=== PATIENT | female | born 1970 | race Caucasian/White ===

== ENCOUNTER 2020-09-02 13:30 | Inpatient (IN) | payer MEDICAID, SELFPAY ==
--- NOTE | ~2020-09-02 | CT_ITS ---
EXAMINATION: CT ABDOMEN AND PELVIS WITHOUT CONTRAST CLINICAL INFORMATION: Pain. COMPARISON: None. TECHNIQUE: Contiguous axial thin section helical images of the abdomen and pelvis were performed without oral or IV contrast. The data set was reformatted in the coronal and sagittal planes and reviewed on an independent workstation. DLP: 878 mGy-cm. FINDINGS: The visualized lung bases are clear. The visualized portions of the heart are unremarkable. The liver is of normal size and attenuation without focal lesions nor intrahepatic biliary ductal dilation. A normal gallbladder is identified. There is no wall thickening or discernible pericholecystic fluid. The spleen, pancreas, adrenal glands are unremarkable. Both kidneys are of normal size and attenuation without hydronephrosis or nephrolithiasis. There is no abdominal free fluid. There is neither mesenteric nor retroperitoneal lymphadenopathy. Normal unopacified loops of small and large bowel are identified. And normal appendix is identified. There is no pelvic free fluid. The urinary bladder is unremarkable. There is neither pelvic nor inguinal lymphadenopathy. Bone windows: Neither sclerotic nor lytic bone lesions are identified. CT/CT abdomen pelvis wo con IMPRESSION: No acute abdominal or pelvic inflammatory or infectious processes. Automated exposure control (Care Dose) Adjustment of the mA and/or kv according to patient size (this includes techniques or standardized protocols for targeted exams where dose is matched to indication / reason for exam; i.e. extremities or head).
--- NOTE | ~2020-09-02 | XR_ITS ---
EXAMINATION: XR CHEST CLINICAL INFORMATION: AMS. COMPARISON: None TECHNIQUE: Frontal view of the chest was obtained. FINDINGS: No significant abnormality is noted involving the heart, lungs, mediastinum, bony thorax or soft tissues. XR/XR chest 1V IMPRESSION: Unremarkable chest exam.
--- NOTE | ~2020-09-02 | CT_ITS ---
EXAMINATION: CT HEAD WITHOUT CONTRAST CLINICAL INFORMATION: Altered mental syndrome COMPARISON: None TECHNIQUE: Contiguous axial imaging was performed from the skull base to vertex without intravenous administration of contrast. This CT examination was performed using dose optimization techniques as appropriate, variously including the following: *Automated exposure control *Adjustment of mA and/or kV according to patient size (this includes techniques or standardized protocols for targeted exams where dose is matched to indication/reason for exam; i.e. extremities or head) *Use of iterative reconstruction technique DLP: 756 mGy-cm FINDINGS: There is no evidence of acute intracranial hemorrhage or territorial infarction. No abnormal mass effect or midline shift is seen. Wayne to white matter differentiation is well preserved. No extra-axial fluid collections are identified. The ventricles are normal in size. There is no abnormal attenuation within the brain parenchyma. The osseous structures and soft tissues are normal. The mastoid air cells and visualized portions of the paranasal sinuses are well aerated. CT/CT head/brain wo con IMPRESSION: No acute intracranial process seen..
--- NOTE | ~2020-09-02 | MR_ITS ---
EXAMINATION: MR BRAIN WITHOUT AND WITH CONTRAST CLINICAL INFORMATION: Encephalopathy. COMPARISON: CT scan of the head 09/02/2020. TECHNIQUE: Multiplanar MR imaging of the brain was performed without and with contrast. A total of 7.5 mL Gadavist was utilized for this examination. FINDINGS: Postcontrast images reveal no abnormal mass or enhancement within the intracranial compartment. No intracranial mass effect or midline shift. Lateral and third ventricles are proportionate to the subarachnoid spaces. No hydrocephalus. Midline structures including the cervicomedullary junction are normal. No acute bone marrow signal lesions. There is no acute territorial infarct. There is a punctate focus of susceptibility artifact within the right globus pallidus. Otherwise no pathological magnetic susceptibility artifact. Intracranial vascular flow voids are maintained. There is no mastoid middle ear effusion. No active paranasal sinus disease. MR/MR head/brain wo/w con IMPRESSION: Unremarkable brain MRI. No evidence of acute territorial infarct or hemorrhage. No abnormal intracranial mass or enhancement.
[2020-09-02 13:41] VITALS: BP 135/80; PULSE 107; O2SAT 100
[2020-09-02 13:45] VITALS: BP 118/60; PULSE 95; RESP 20; TEMP 36.9; O2SAT 98; BMI 33.3
--- NOTE | 2020-09-02 14:01 | ECG_ITS ---
Test Reason : AMS Blood Pressure : / mmHG Vent. Rate : 095 BPM Atrial Rate : 095 BPM P-R Int : 134 ms QRS Dur : 102 ms QT Int : 368 ms P-R-T Axes : 042 041 -13 degrees QTc Int : 462 ms Normal sinus rhythm Normal ECG No previous ECGs available Referred By: King Bates Electronically Signed By:URSULA DAMON
[2020-09-02 14:18] LABS: MANUAL DIFF FLAG NO
[2020-09-02 14:24] LABS: Basophils Percent Auto 0.4 % (0-2); Eosinophils Percent Auto 0.1 % (0-4); Hematocrit 36.5 % (37-47); Hemoglobin 11.8 g/dl (12.0-16.0); Imm Gran Abs Auto 0.09 X10*3/uL (0.00-0.03); Imm Gran Pct Auto 0.8 % (0.0-0.4); Lymphocytes Absolute Auto 1.8 X10*3/uL (1.2-4.9); Lymphocytes Percent Auto 15.8 % (20-40); Mean Corpuscular HGB Conc 32.3 g/dl (31.0-35.0); Mean Corpuscular Hemoglobin 25.1 pg (27.0-33.0); Mean Corpuscular Volume 77.7 fL (80-98); Monocytes Absolute Auto 0.9 X10*3/uL (0.1-1.2); Monocytes Percent Auto 7.6 % (2-11); Neutrophils Absolute Auto 8.4 X10*3/uL (2.0-8.3); Neutrophils Percent Auto 75.3 % (45-73); Platelet Count 234 X10*3/uL (160-400); Red Cell Distribution Width 15.1 % (11.0-16.0); White Blood Count 11.1 X10*3/uL (4.8-10.8)
[2020-09-02] MEDS: 0.9 % Sodium Chloride 1,000 ML 999 ML IV (14:24)
[2020-09-02 14:36] LABS: INTERNATIONAL NORM RATIO 1.3 (0.9-1.1); Prothrombin Time 15.4 SEC (10.8-13.0)
[2020-09-02 14:39] LABS: Partial Thromboplastin Time 32.8 SEC (24.1-38.0)
[2020-09-02 14:49] LABS: Alanine Aminotransferase 23 U/L (0-31); Albumin Level 4.2 g/dL (3.5-5.0); Alkaline Phosphatase 137 U/L (39-117); Anion Gap 17 (12-20); Aspartate Amino Transferase 18 U/L (5-31); Bilirubin Total 0.4 mg/dL (0.0-1.0); Blood Urea Nitrogen 14 mg/dL (9-16); Calcium 8.9 mg/dL (8.4-10.2); Carbon Dioxide 23 mmol/L (22-29); Chloride 101 mmol/L (96-108); Creatinine Clr Calc Pharmacy 122.1; Estimated Glomerular Filt Rate > 60; Glucose Random 176 mg/dL (60-115); Potassium 3.8 mmol/L (3.3-5.1); Sodium 137 mmol/L (135-145); Total Protein 8.5 g/dL (6.5-8.0)
--- NOTE | 2020-09-02 16:27 | ED.GENADULT ---
HPI - General Adult General Chief complaint: General Medical <King Bates NP - Last Filed: 09/02/20 17:44> Stated complaint: N/V/D X1WEEK <King Bates NP - Last Filed: 09/02/20 17:44> Time Seen by Provider: 09/02/20 14:00 <King Bates NP - Last Filed: 09/02/20 17:44> Source: EMS <King Bates NP - Last Filed: 09/02/20 17:44> Mode of arrival: EMS <King Bates NP - Last Filed: 09/02/20 17:44> Limitations: language barrier <King Bates NP - Last Filed: 09/02/20 17:44> History of Present Illness HPI narrative: This is a 50-year-old female who is primarily Grenadian-speaking the warehouse guard present also sister Elvia via phone [phone] she has a past medical history that is significant for diabetes, hypertension and hyperlipidemia she presents via EMS with complaint of she received her COVID vaccine (maderna) on August 27 and the day after she started having some GI symptoms of nausea and vomiting with some intermittent diarrhea and for the past couple days she has been more lethargic and feeling like she has no energy as well per sister seem more confused over past 2 or 3 days. <King Bates NP - Last Filed: 09/02/20 17:44> Onset (ago): day(s) <King Bates NP - Last Filed: 09/02/20 17:44> Severity: moderate <King Bates NP - Last Filed: 09/02/20 17:44> Quality: aching <King Bates NP - Last Filed: 09/02/20 17:44> Pain Consistency: constant <King Bates NP - Last Filed: 09/02/20 17:44> Relieving factors: none <King Bates NP - Last Filed: 09/02/20 17:44> Exacerbating factors: none <King Bates NP - Last Filed: 09/02/20 17:44> Associated symptoms: weakness <King Bates NP - Last Filed: 09/02/20 17:44> Treatments prior to arrival: none <King Bates NP - Last Filed: 09/02/20 17:44> Related Data Allergies/adverse reactions: Allergies Allergy/AdvReac Type Severity Reaction Status Date / Time ibuprofen Allergy Unknown Verified 12/02/18 00:00 <King Bates NP - Last Filed: 09/02/20 17:44> Review of Systems Review of Systems: Yes Unobtainable due to mental status <King Bates NP - Last Filed: 09/02/20 17:44> [facility] Past Medical History Medical History: Medical History HLD (hyperlipidemia) HTN (hypertension) <King Bates NP - Last Filed: 09/02/20 17:44> Social History Social History: Social History Alcohol intake: unknown Smoking Status: Unknown if ever smoked Use of substances other than those prescribed or required for medical reasons: Unknown Advance Directives: No Advance Directives Information Provided: No <King Bates NP - Last Filed: 09/02/20 17:44> Physical Exam Vital Signs: Vital Signs: Last Vital Signs Temp 98.4 F 09/02/20 13:45 Pulse 94 09/03/20 00:05 Resp 20 09/03/20 00:05 BP 135/74 09/03/20 00:05 Pulse Ox 97 09/03/20 00:05 Body Mass Index 27.3 Reviewed <King Bates NP - Last Filed: 09/02/20 17:44> Vital Signs: Last Vital Signs Temp 98.4 F 09/02/20 13:45 Pulse 94 09/03/20 00:05 Resp 20 09/03/20 00:05 BP 135/74 09/03/20 00:05 Pulse Ox 97 09/03/20 00:05 Body Mass Index 27.3 <Eloise Truong NP - Last Filed: 09/03/20 03:22> Const: Other: Somnolent [employer] patrol police lieutenant say his hospital and say her name but refusing to participate in exam <King Bates NP - Last Filed: 09/02/20 17:44> General: No acute distress or intoxicated appearing <King Bates NP - Last Filed: 09/02/20 17:44> Nutritional Appearance: average body habitus <[facility] Jana [facility] Last Filed: 09/02/20 17:44> Orientation/consciousness: oriented to person and oriented to time <[facility] Bates [facility] Last Filed: 09/02/20 17:44> HENMT: Head: Yes normal to inspection <[facility] Bates [facility] Last Filed: 09/02/20 17:44> Ears: hearing grossly normal bilaterally <[facility] Last Filed: 09/02/20 17:44> Eyes: General: appearance normal, both eyes and all related structures <[facility] Bates [facility] Last Filed: 09/02/20 17:44> Visual Garrett: normal visual garrett by confrontation <[facility] Bates [facility] Last Filed: 09/02/20 17:44> Neck: Neck: Yes normal visual inspection, No positive Brudzinski's sign, No positive Kernig's sign and No tender <[facility] Bates [facility] Last Filed: 09/02/20 17:44> Thyroid: Thyroid normal <[facility] Last Filed: 09/02/20 17:44> Chest: Chest palpation & inspection: normal inspection of the chest <[facility] Bates, [facility] Last Filed: 09/02/20 17:44> Resp: Effort & Inspection: normal respiratory effort <[facility] Bates [facility] Last Filed: 09/02/20 17:44> Auscultation: clear to auscultation bilaterally <[facility] Bates, [facility] Last Filed: 09/02/20 17:44> Cardio: Jugular venous distension: no JVD <[facility] Last Filed: 09/02/20 17:44> Rhythm: regular rhythm <[facility] Last Filed: 09/02/20 17:44> Heart sounds: S1 normal heart sound present and S2 normal heart sound present <[facility] Last Filed: 09/02/20 17:44> GI: Inspection: Yes normal to inspection <[facility] Last Filed: 09/02/20 17:44> Palpation (GI): Soft to palpation <[facility] - Last Filed: 09/02/20 17:44> Percussion: Yes normal to percussion <[facility] Jana, ACADEMIC AFFAIRS MANAGER - Last Filed: 09/02/20 17:44> Auscultation: normal bowel sounds <[facility] Jana, ACADEMIC AFFAIRS MANAGER - Last Filed: 09/02/20 17:44> : General: Yes no CVA tenderness <[facility] Jana, ACADEMIC AFFAIRS MANAGER - Last Filed: 09/02/20 17:44> Back/Spine/Pelvis: Back: no CVA tenderness <[facility] Jana, ACADEMIC AFFAIRS MANAGER - Last Filed: 09/02/20 17:44> Skin: General skin exam: no rashes or lesions noted <[facility] Jana, ACADEMIC AFFAIRS MANAGER - Last Filed: 09/02/20 17:44> Neuro: General: oriented to person and oriented to time <[facility] Jana, ACADEMIC AFFAIRS MANAGER - Last Filed: 09/02/20 17:44> Extrem: General: Yes normal to inspection <[facility] Jana, ACADEMIC AFFAIRS MANAGER - Last Filed: 09/02/20 17:44> Course Course Course Narrative: Patient straight cath for urine at this time 8:48 p.m. Urinalysis is negative for acute findings, PRO is negative. Family member present at bedside at 10:00 p.m., discussion with daughter regarding this patient's mental status, she is usually alert oriented x4, able to complete tasks on her own. Discussion with Dr. Glass, plan is to add ESR, CRP, ammonia, and plan for LP with ketamine sedation. Consent signed by daughter at 10:38 p.m. utilizing patrol police lieutenant. 12:[address] Dutton at bedside with this ACADEMIC AFFAIRS MANAGER, physical exam performed by Dr. Glass indicates abdominal pain, patient is moaning during palpation, this is a different presentation than my prior evaluation and prior [facility] ACADEMIC AFFAIRS MANAGER evaluation. Will add on CT scan of abdomen and pelvis prior to LP. 1:00 a.m. multiple attempts made for CT, plan for Ativan IV 1 mg. 1:45 a.m., 2nd dose of Ativan IV given. 2:15 a.m., multiple attempts for CT angio failed, patient is unable to stay still, unable to follow directions. Discussion with hospitalist, and she agrees with this plan. 2:[address] scan of the abdomen is negative for acute findings. Will pursue LP at this time. 3:21 a.m. multiple attempts by Dr. Glass and this ACADEMIC AFFAIRS MANAGER for LP CSF culture failed. Discussion with hospitalist, plan is to empirically treat for bacterial and viral encephalitis with acyclovir IV, doxycycline, and ceftriaxone. Lactic acid, blood cultures, and Lyme titer obtained. Sign-out to Dr. Glass, pending admission for encephalitis. <Eloise Truong ACADEMIC AFFAIRS MANAGER - Last Filed: 09/03/20 03:22> Reevaluation(s) Reevaluation #1: 1430 50-year-old female with history of hypertension/hyperlipidemia who received her COVID vaccinations 6 days ago and after receiving at she has had some myalgias and subsequently having GI symptoms of nausea vomiting and some diarrhea. She is primarily Grenadian-speaking upon arrival somnolent and not persisting exam much. Will check labs rule out electrolyte derangement and head CT rule out acute pathology though I would not suspect acute intracranial process. Will monitor closely. Spoke to sister Elvia she will come in. Her phone number is [phone]. EMS report reviewed he does state that she was alert and oriented x4, ambulatory on scene. <King Bates NP - Last Filed: 09/02/20 17:44> Reevaluation #2: Labs overall reassuring, CT of the head unremarkable. UA still pending I was able to get the patient out of bed with assistance of the business office technician and she ambulated with slow but steady gait about 15 ft and went to the bathroom to provide a UA however she voided in the toilet and missed the hat. She tells me her name but continues to not participate in exam question underlying psychiatric diagnoses.. Spoke to sister who states she is on way but does not specifically know of anything. No recent triggers aside from the COVID vaccine. UA/U tox is pending will try again in a few minutes. <King Bates NP - Last Filed: 09/02/20 17:44> Reevaluation #3: Sign-out to eloise pending re-evaluation and U tox if patient mentation improves question underlying toxic versus psych versus social stressors sisters on the way to help with history. Will need disposition. <King Bates NP - Last Filed: 09/02/20 17:44> Consultations Consultation #1: Spoke to sister Elvia several times on the phone she is on her way to the ER <King Bates NP - Last Filed: 09/02/20 17:44> Medical Decision Making Lab Data Result diagrams: : 09/02/20 14:11 09/02/20 14:11 <King Bates NP - Last Filed: 09/02/20 17:44> Labs: Lab Results 09/02/20 09/02/20 09/02/20 Range/Units 14:11 14:11 14:11 WBC 11.1 H (4.8-10.8) X10*3/uL RBC 4.70 (4.20-5.50) X10*6/uL Hgb 11.8 L (12.0-16.0) g/dl Hct 36.5 L (37-47) % MCV 77.7 L (80-98) fL MCH 25.1 L (27.0-33.0) pg MCHC 32.3 (31.0-35.0) g/dl RDW 15.1 (11.0-16.0) % Plt Count 234 (160-400) X10*3/uL MPV 11.0 (9.4-12.3) fL Immature Gran % (Auto) 0.8 H (0.0-0.4) % Neut % (Auto) 75.3 H (45-73) % Lymph % (Auto) 15.8 L (20-40) % [place] % (Auto) 7.6 (2-11) % Eos % (Auto) 0.1 (0-4) % Baso % (Auto) 0.4 (0-2) % Lymph # (Auto) 1.8 (1.2-4.9) X10*3/uL [place] # (Auto) 0.9 (0.1-1.2) X10*3/uL Eos # (Auto) 0.0 (0.0-0.4) X10*3/uL Baso # (Auto) 0.0 (0.0-0.2) X10*3/uL Abs Immat Gran (auto) 0.09 H (0.00-0.03) X10*3/uL Absolute Neuts (auto) 8.4 H (2.0-8.3) X10*3/uL Absolute Nucleated RBC 0.000 (0.0-0.012) X10*3/uL Nucleated RBC % (auto) 0.0 (0.0-0.2) /100WBC ESR (0-20) MM/HR PT 15.4 H (10.8-13.0) SEC INR 1.3 H (0.9-1.1) APTT 32.8 (24.1-38.0) SEC Sodium 137 (135-145) mmol/L Potassium 3.8 (3.3-5.1) mmol/L Chloride 101 (96-108) mmol/L Carbon Dioxide 23 (22-29) mmol/L Anion Gap 17 (12-20) BUN 14 (9-16) mg/dL Creatinine 0.62 (0.5-1.4) mg/dL Estim Creat Clear Calc 122.1 Estimated GFR > 60 Random Glucose 176 H (60-115) mg/dL Calcium 8.9 (8.4-10.2) mg/dL Total Bilirubin 0.4 (0.0-1.0) mg/dL AST 18 (5-31) U/L ALT 23 (0-31) U/L Alkaline Phosphatase 137 H (39-117) U/L Ammonia (13-55) umol/L C-Reactive Protein 0.63 H (< or = 0.50) mg/dL Total Protein 8.5 H (6.5-8.0) g/dL Albumin 4.2 (3.5-5.0) g/dL Urine Color Urine Appearance Urine pH (5.0-8.0) Ur Specific [place] (1.005-1.025) Urine Protein (NEG-TRACE) MG/DL Urine Glucose (UA) (NEG) MG/DL Urine Ketones (NEG) MG/DL Urine Blood (NEG) Urine Nitrite (NEG) Ur Leukocyte Esterase (NEG) Urine RBC (0) /HPF Urine WBC (0-4) /HPF Ur Squamous Epith Cells /LPF Urine Bacteria /LPF Urine Mucus /LPF Urine Test (NEGATIVE) Urine Opiates Screen (Not Detect) Ur Barbiturates Screen (Not Detect) Ur Phencyclidine Scrn (Not Detect) Ur Amphetamines Screen (Not Detect) U Benzodiazepines Scrn (Not Detect) Urine Cocaine Screen (Not Detect) U Marijuana (THC) Screen (Not Detect) 09/02/20 09/02/20 09/02/20 Range/Units 14:11 20:29 20:29 WBC (4.8-10.8) X10*3/uL RBC (4.20-5.50) X10*6/uL Hgb (12.0-16.0) g/dl Hct (37-47) % MCV (80-98) fL MCH (27.0-33.0) pg MCHC (31.0-35.0) g/dl RDW (11.0-16.0) % Plt Count (160-400) X10*3/uL MPV (9.4-12.3) fL Immature Gran % (Auto) (0.0-0.4) % Neut % (Auto) (45-73) % Lymph % (Auto) (20-40) % [place] % (Auto) (2-11) % Eos % (Auto) (0-4) % Baso % (Auto) (0-2) % Lymph # (Auto) (1.2-4.9) X10*3/uL [place] # (Auto) (0.1-1.2) X10*3/uL Eos # (Auto) (0.0-0.4) X10*3/uL Baso # (Auto) (0.0-0.2) X10*3/uL Abs Immat Gran (auto) (0.00-0.03) X10*3/uL Absolute Neuts (auto) (2.0-8.3) X10*3/uL Absolute Nucleated RBC (0.0-0.012) X10*3/uL Nucleated RBC % (auto) (0.0-0.2) /100WBC ESR 54 H (0-20) MM/HR PT (10.8-13.0) SEC INR (0.9-1.1) APTT (24.1-38.0) SEC Sodium (135-145) mmol/L Potassium (3.3-5.1) mmol/L Chloride (96-108) mmol/L Carbon Dioxide (22-29) mmol/L Anion Gap (12-20) BUN (9-16) mg/dL Creatinine (0.5-1.4) mg/dL Estim Creat Clear Calc Estimated GFR Random Glucose (60-115) mg/dL Calcium (8.4-10.2) mg/dL Total Bilirubin (0.0-1.0) mg/dL AST (5-31) U/L ALT (0-31) U/L Alkaline Phosphatase (39-117) U/L Ammonia (13-55) umol/L C-Reactive Protein (< or = 0.50) mg/dL Total Protein (6.5-8.0) g/dL Albumin (3.5-5.0) g/dL Urine Color YELLOW Urine Appearance CLEAR Urine pH 6.0 (5.0-8.0) Ur Specific [place] >= 1.030 H (1.005-1.025) Urine Protein NEG (NEG-TRACE) MG/DL Urine Glucose (UA) NEG (NEG) MG/DL Urine Ketones >=80 (NEG) MG/DL Urine Blood NEG (NEG) Urine Nitrite NEG (NEG) Ur Leukocyte Esterase NEG (NEG) Urine RBC 0-2 (0) /HPF Urine WBC 0-2 (0-4) /HPF Ur Squamous Epith Cells TRACE /LPF Urine Bacteria NONE /LPF Urine Mucus 2+ /LPF Urine Test NEGATIVE (NEGATIVE) Urine Opiates Screen (Not Detect) Ur Barbiturates Screen (Not Detect) Ur Phencyclidine Scrn (Not Detect) Ur Amphetamines Screen (Not Detect) U Benzodiazepines Scrn (Not Detect) Urine Cocaine Screen (Not Detect) U Marijuana (THC) Screen (Not Detect) 09/02/20 09/03/20 Range/Units 20:29 00:04 WBC (4.8-10.8) X10*3/uL RBC (4.20-5.50) X10*6/uL Hgb (12.0-16.0) g/dl Hct (37-47) % MCV (80-98) fL MCH (27.0-33.0) pg MCHC (31.0-35.0) g/dl RDW (11.0-16.0) % Plt Count (160-400) X10*3/uL MPV (9.4-12.3) fL Immature Gran % (Auto) (0.0-0.4) % Neut % (Auto) (45-73) % Lymph % (Auto) (20-40) % [place] % (Auto) (2-11) % Eos % (Auto) (0-4) % Baso % (Auto) (0-2) % Lymph # (Auto) (1.2-4.9) X10*3/uL [place] # (Auto) (0.1-1.2) X10*3/uL Eos # (Auto) (0.0-0.4) X10*3/uL Baso # (Auto) (0.0-0.2) X10*3/uL Abs Immat Gran (auto) (0.00-0.03) X10*3/uL Absolute Neuts (auto) (2.0-8.3) X10*3/uL Absolute Nucleated RBC (0.0-0.012) X10*3/uL Nucleated RBC % (auto) (0.0-0.2) /100WBC ESR (0-20) MM/HR PT (10.8-13.0) SEC INR (0.9-1.1) APTT (24.1-38.0) SEC Sodium (135-145) mmol/L Potassium (3.3-5.1) mmol/L Chloride (96-108) mmol/L Carbon Dioxide (22-29) mmol/L Anion Gap (12-20) BUN (9-16) mg/dL Creatinine (0.5-1.4) mg/dL Estim Creat Clear Calc Estimated GFR Random Glucose (60-115) mg/dL Calcium (8.4-10.2) mg/dL Total Bilirubin (0.0-1.0) mg/dL AST (5-31) U/L ALT (0-31) U/L Alkaline Phosphatase (39-117) U/L Ammonia 50 (13-55) umol/L C-Reactive Protein (< or = 0.50) mg/dL Total Protein (6.5-8.0) g/dL Albumin (3.5-5.0) g/dL Urine Color Urine Appearance Urine pH (5.0-8.0) Ur Specific [place] (1.005-1.025) Urine Protein (NEG-TRACE) MG/DL Urine Glucose (UA) (NEG) MG/DL Urine Ketones (NEG) MG/DL Urine Blood (NEG) Urine Nitrite (NEG) Ur Leukocyte Esterase (NEG) Urine RBC (0) /HPF Urine WBC (0-4) /HPF Ur Squamous Epith Cells /LPF Urine Bacteria /LPF Urine Mucus /LPF Urine Test (NEGATIVE) Urine Opiates Screen Not Detected (Not Detect) Ur Barbiturates Screen Not Detected (Not Detect) Ur Phencyclidine Scrn Not Detected (Not Detect) Ur Amphetamines Screen Not Detected (Not Detect) U Benzodiazepines Scrn Not Detected (Not Detect) Urine Cocaine Screen Not Detected (Not Detect) U Marijuana (THC) Screen Not Detected (Not Detect) <King Bates NP - Last Filed: 09/02/20 17:44> Lab Results 09/02/20 09/02/20 09/02/20 Range/Units 14:11 14:11 14:11 WBC 11.1 H (4.8-10.8) X10*3/uL RBC 4.70 (4.20-5.50) X10*6/uL Hgb 11.8 L (12.0-16.0) g/dl Hct 36.5 L (37-47) % MCV 77.7 L (80-98) fL MCH 25.1 L (27.0-33.0) pg MCHC 32.3 (31.0-35.0) g/dl RDW 15.1 (11.0-16.0) % Plt Count 234 (160-400) X10*3/uL MPV 11.0 (9.4-12.3) fL Immature Gran % (Auto) 0.8 H (0.0-0.4) % Neut % (Auto) 75.3 H (45-73) % Lymph % (Auto) 15.8 L (20-40) % [place] % (Auto) 7.6 (2-11) % Eos % (Auto) 0.1 (0-4) % Baso % (Auto) 0.4 (0-2) % Lymph # (Auto) 1.8 (1.2-4.9) X10*3/uL [place] # (Auto) 0.9 (0.1-1.2) X10*3/uL Eos # (Auto) 0.0 (0.0-0.4) X10*3/uL Baso # (Auto) 0.0 (0.0-0.2) X10*3/uL Abs Immat Gran (auto) 0.09 H (0.00-0.03) X10*3/uL Absolute Neuts (auto) 8.4 H (2.0-8.3) X10*3/uL Absolute Nucleated RBC 0.000 (0.0-0.012) X10*3/uL Nucleated RBC % (auto) 0.0 (0.0-0.2) /100WBC ESR (0-20) MM/HR PT 15.4 H (10.8-13.0) SEC INR 1.3 H (0.9-1.1) APTT 32.8 (24.1-38.0) SEC Sodium 137 (135-145) mmol/L Potassium 3.8 (3.3-5.1) mmol/L Chloride 101 (96-108) mmol/L Carbon Dioxide 23 (22-29) mmol/L Anion Gap 17 (12-20) BUN 14 (9-16) mg/dL Creatinine 0.62 (0.5-1.4) mg/dL Estim Creat Clear Calc 122.1 Estimated GFR > 60 Random Glucose 176 H (60-115) mg/dL Calcium 8.9 (8.4-10.2) mg/dL Total Bilirubin 0.4 (0.0-1.0) mg/dL AST 18 (5-31) U/L ALT 23 (0-31) U/L Alkaline Phosphatase 137 H (39-117) U/L Ammonia (13-55) umol/L C-Reactive Protein 0.63 H (< or = 0.50) mg/dL Total Protein 8.5 H (6.5-8.0) g/dL Albumin 4.2 (3.5-5.0) g/dL Urine Color Urine Appearance Urine pH (5.0-8.0) Ur Specific [place] (1.005-1.025) Urine Protein (NEG-TRACE) MG/DL Urine Glucose (UA) (NEG) MG/DL Urine Ketones (NEG) MG/DL Urine Blood (NEG) Urine Nitrite (NEG) Ur Leukocyte Esterase (NEG) Urine RBC (0) /HPF Urine WBC (0-4) /HPF Ur Squamous Epith Cells /LPF Urine Bacteria /LPF Urine Mucus /LPF Urine Test (NEGATIVE) Urine Opiates Screen (Not Detect) Ur Barbiturates Screen (Not Detect) Ur Phencyclidine Scrn (Not Detect) Ur Amphetamines Screen (Not Detect) U Benzodiazepines Scrn (Not Detect) Urine Cocaine Screen (Not Detect) U Marijuana (THC) Screen (Not Detect) 09/02/20 09/02/20 09/02/20 Range/Units 14:11 20:29 20:29 WBC (4.8-10.8) X10*3/uL RBC (4.20-5.50) X10*6/uL Hgb (12.0-16.0) g/dl Hct (37-47) % MCV (80-98) fL MCH (27.0-33.0) pg MCHC (31.0-35.0) g/dl RDW (11.0-16.0) % Plt Count (160-400) X10*3/uL MPV (9.4-12.3) fL Immature Gran % (Auto) (0.0-0.4) % Neut % (Auto) (45-73) % Lymph % (Auto) (20-40) % [place] % (Auto) (2-11) % Eos % (Auto) (0-4) % Baso % (Auto) (0-2) % Lymph # (Auto) (1.2-4.9) X10*3/uL [place] # (Auto) (0.1-1.2) X10*3/uL Eos # (Auto) (0.0-0.4) X10*3/uL Baso # (Auto) (0.0-0.2) X10*3/uL Abs Immat Gran (auto) (0.00-0.03) X10*3/uL Absolute Neuts (auto) (2.0-8.3) X10*3/uL Absolute Nucleated RBC (0.0-0.012) X10*3/uL Nucleated RBC % (auto) (0.0-0.2) /100WBC ESR 54 H (0-20) MM/HR PT (10.8-13.0) SEC INR (0.9-1.1) APTT (24.1-38.0) SEC Sodium (135-145) mmol/L Potassium (3.3-5.1) mmol/L Chloride (96-108) mmol/L Carbon Dioxide (22-29) mmol/L Anion Gap (12-20) BUN (9-16) mg/dL Creatinine (0.5-1.4) mg/dL Estim Creat Clear Calc Estimated GFR Random Glucose (60-115) mg/dL Calcium (8.4-10.2) mg/dL Total Bilirubin (0.0-1.0) mg/dL AST (5-31) U/L ALT (0-31) U/L Alkaline Phosphatase (39-117) U/L Ammonia (13-55) umol/L C-Reactive Protein (< or = 0.50) mg/dL Total Protein (6.5-8.0) g/dL Albumin (3.5-5.0) g/dL Urine Color YELLOW Urine Appearance CLEAR Urine pH 6.0 (5.0-8.0) Ur Specific [place] >= 1.030 H (1.005-1.025) Urine Protein NEG (NEG-TRACE) MG/DL Urine Glucose (UA) NEG (NEG) MG/DL Urine Ketones >=80 (NEG) MG/DL Urine Blood NEG (NEG) Urine Nitrite NEG (NEG) Ur Leukocyte Esterase NEG (NEG) Urine RBC 0-2 (0) /HPF Urine WBC 0-2 (0-4) /HPF Ur Squamous Epith Cells TRACE /LPF Urine Bacteria NONE /LPF Urine Mucus 2+ /LPF Urine Test NEGATIVE (NEGATIVE) Urine Opiates Screen (Not Detect) Ur Barbiturates Screen (Not Detect) Ur Phencyclidine Scrn (Not Detect) Ur Amphetamines Screen (Not Detect) U Benzodiazepines Scrn (Not Detect) Urine Cocaine Screen (Not Detect) U Marijuana (THC) Screen (Not Detect) 09/02/20 09/03/20 Range/Units 20:29 00:04 WBC (4.8-10.8) X10*3/uL RBC (4.20-5.50) X10*6/uL Hgb (12.0-16.0) g/dl Hct (37-47) % MCV (80-98) fL MCH (27.0-33.0) pg MCHC (31.0-35.0) g/dl RDW (11.0-16.0) % Plt Count (160-400) X10*3/uL MPV (9.4-12.3) fL Immature Gran % (Auto) (0.0-0.4) % Neut % (Auto) (45-73) % Lymph % (Auto) (20-40) % [place] % (Auto) (2-11) % Eos % (Auto) (0-4) % Baso % (Auto) (0-2) % Lymph # (Auto) (1.2-4.9) X10*3/uL [place] # (Auto) (0.1-1.2) X10*3/uL Eos # (Auto) (0.0-0.4) X10*3/uL Baso # (Auto) (0.0-0.2) X10*3/uL Abs Immat Gran (auto) (0.00-0.03) X10*3/uL Absolute Neuts (auto) (2.0-8.3) X10*3/uL Absolute Nucleated RBC (0.0-0.012) X10*3/uL Nucleated RBC % (auto) (0.0-0.2) /100WBC ESR (0-20) MM/HR PT (10.8-13.0) SEC INR (0.9-1.1) APTT (24.1-38.0) SEC Sodium (135-145) mmol/L Potassium (3.3-5.1) mmol/L Chloride (96-108) mmol/L Carbon Dioxide (22-29) mmol/L Anion Gap (12-20) BUN (9-16) mg/dL Creatinine (0.5-1.4) mg/dL Estim Creat Clear Calc Estimated GFR Random Glucose (60-115) mg/dL Calcium (8.4-10.2) mg/dL Total Bilirubin (0.0-1.0) mg/dL AST (5-31) U/L ALT (0-31) U/L Alkaline Phosphatase (39-117) U/L Ammonia 50 (13-55) umol/L C-Reactive Protein (< or = 0.50) mg/dL Total Protein (6.5-8.0) g/dL Albumin (3.5-5.0) g/dL Urine Color Urine Appearance Urine pH (5.0-8.0) Ur Specific [place] (1.005-1.025) Urine Protein (NEG-TRACE) MG/DL Urine Glucose (UA) (NEG) MG/DL Urine Ketones (NEG) MG/DL Urine Blood (NEG) Urine Nitrite (NEG) Ur Leukocyte Esterase (NEG) Urine RBC (0) /HPF Urine WBC (0-4) /HPF Ur Squamous Epith Cells /LPF Urine Bacteria /LPF Urine Mucus /LPF Urine Test (NEGATIVE) Urine Opiates Screen Not Detected (Not Detect) Ur Barbiturates Screen Not Detected (Not Detect) Ur Phencyclidine Scrn Not Detected (Not Detect) Ur Amphetamines Screen Not Detected (Not Detect) U Benzodiazepines Scrn Not Detected (Not Detect) Urine Cocaine Screen Not Detected (Not Detect) U Marijuana (THC) Screen Not Detected (Not Detect) <Eloise Truong NP - Last Filed: 09/03/20 03:22> Imaging Data CT scan - abdomen: Attestation: I personally reviewed and interpreted this imaging study as follows: <Eloise Truong NP - Last Filed: 09/03/20 03:22> Radiologist's impression: EXAMINATION: CT ABDOMEN AND PELVIS WITHOUT CONTRAST CLINICAL INFORMATION: Pain. COMPARISON: None. TECHNIQUE: Contiguous axial thin section helical images of the abdomen and pelvis were performed without oral or IV contrast. The data set was reformatted in the coronal and sagittal planes and reviewed on an independent workstation. DLP: 878 mGy-cm. FINDINGS: The visualized lung bases are clear. The visualized portions of the heart are unremarkable. The liver is of normal size and attenuation without focal lesions nor intrahepatic biliary ductal dilation. A normal gallbladder is identified. There is no wall thickening or discernible pericholecystic fluid. The spleen, pancreas, adrenal glands are unremarkable. Both kidneys are of normal size and attenuation without hydronephrosis or nephrolithiasis. There is no abdominal free fluid. There is neither mesenteric nor retroperitoneal lymphadenopathy. Normal unopacified loops of small and large bowel are identified. And normal appendix is identified. There is no pelvic free fluid. The urinary bladder is unremarkable. There is neither pelvic nor inguinal lymphadenopathy. Bone windows: Neither sclerotic nor lytic bone lesions are identified. CT/CT abdomen pelvis wo con IMPRESSION: No acute abdominal or pelvic inflammatory or infectious processes. Automated exposure control (Care Dose) Adjustment of the mA and/or kv according to patient size (this includes techniques or standardized protocols for targeted exams where dose is matched to indication / reason for exam; i.e. extremities or head). <Eloise Truong NP - Last Filed: 09/03/20 03:22> Critical Care Time Critical Care Time Critical Care Time: Yes <Eloise Truong NP - Last Filed: 09/03/20 03:22> Total Critical Care Time: 120 <Eloise Truong NP - Last Filed: 09/03/20 03:22> Attestation: I have personally provided critical care time exclusive of time spent on separately billable procedures. Time includes review of laboratory data, radiology results, discussion with consultants, and monitoring for potential decompensation. Interventions were performed as documented. <Eloise Truong NP - Last Filed: 09/03/20 03:22> Discharge Plan Discharge Clinical Impression: Encephalitis <King Bates NP - Last Filed: 09/02/20 17:44> Patient Disposition: Admitted As Inpatient <King Bates NP - Last Filed: 09/02/20 17:44>
[2020-09-02 17:48] VITALS: BP 140/77; PULSE 104; RESP 16; O2SAT 100
--- NOTE | 2020-09-02 19:44 | PC.NURSE ---
WALKED INTO ROOM TO REMIND PATIENT THAT WE NEED A URINE SAMPLE. PT WOULD NOT VERBALLY AKNOWLEDGE ME, DID OPEN HER EYES. PT ROLLED OVER TO OTHER SIDE. IV FLUIDS NOT RUNNING, IV IN RIGHT AC. PT INSTRUCTED TO TRY AND KEEP RIGHT ARM STRAIGHT, PT WOULD NOT COMPLY. YIFAN SWAN RN.
--- NOTE | 2020-09-02 20:19 | PC.NURSE ---
AIRCRAFT INSPECTOR at bedside with ultrasonic tester discussing CC and current plan of care with pt. Pt refusing to speak to RN/AIRCRAFT INSPECTOR. emissions testing technician at bedside for straight cath.
[2020-09-02 20:40] LABS: Glucose Urine UA NEG (NEG); Leukocyte Esterase Urine NEG (NEG); Nitrite Urine NEG (NEG); Specific Gravity - Urine >= 1.030 (1.005-1.025); Urine Blood NEG (NEG); Urine Ketones >=80 MG/DL (NEG); Urine Protein NEG (NEG-TRACE)
[2020-09-02 20:48] LABS: Appearance Urine CLEAR; Color Urine YELLOW
[2020-09-02 20:51] LABS: Mucus Urine 2+ /LPF; RBC Urine 0-2 /HPF (0); Squamous Epithelial Cell Urine TRACE /LPF; WBC Urine 0-2 /HPF (0-4)
[2020-09-02 20:53] VITALS: BP 128/79; PULSE 89; RESP 16; O2SAT 100
[2020-09-02 21:03] LABS: Urine Pregnancy NEGATIVE (NEGATIVE)
[2020-09-02 21:04] LABS: UPreg QC Valid YES
[2020-09-02 21:14] LABS: Amphetamine Screen Urine Not Detected (Not Detect); Barbiturates, Urine Not Detected (Not Detect); Benzodiazepines Screen Urine Not Detected (Not Detect); Cannabinoid Screen Urine Not Detected (Not Detect); Cocaine Screen Urine Not Detected (Not Detect); Opiate Screen Urine Not Detected (Not Detect); Phencyclidine Screen Urine Not Detected (Not Detect)
--- NOTE | 2020-09-02 21:27 | PC.NURSE ---
Report given to Saray. Pt being prepared for transport to ICU.
--- NOTE | 2020-09-02 23:10 | PC.NURSE ---
Per ENVIRONMENTAL EMERGENCIES ASSISTANT, plan for IM Ketamine and an LP.
[2020-09-02 23:15] VITALS: BMI 27.3
[2020-09-02 23:15] LABS: C Reactive Protein 0.63 mg/dL (< or = 0.50)
--- NOTE | 2020-09-02 23:16 | PC.NURSE ---
Pt transferred into a weighted bed to obtain and accurate weight for sedation. Weight 74.6 kg. Weight updated in chart.
[2020-09-03] VITALS (17 sets, daily range): BP systolic 115–149; BP diastolic 60–90; PULSE 86–118; RESP 16–24; TEMP 36.1–37.4; O2SAT 93–100
--- NOTE | 2020-09-03 00:08 | PC.NURSE ---
Labs obtained and sent. VSS at this time. Awaiting MD and RT for LP.
[2020-09-03 00:26] LABS: Erythrocyte Sedimentation Rate 54 MM/HR (0-20)
[2020-09-03 00:44] LABS: Ammonia 50 umol/L (13-55)
--- NOTE | 2020-09-03 01:04 | PC.NURSE ---
MD and INSURANCE SALES SPECIALIST at bedside for LP. Per MD, plan to CT abdomen prior to LP.
[2020-09-03] MEDS: LORazepam 2 MG/ML VIAL 1 MG IVPUSH ×2 (01:29→02:07)
--- NOTE | 2020-09-03 01:32 | PC.NURSE ---
Pt medicated with Ativan prior to CT as pt remains altered, unable to sit still or follow commands. VSS at this time. Pt aware of plan for CT.
--- NOTE | 2020-09-03 01:49 | PC.NURSE ---
Pt off to CT on hospital bed.
--- NOTE | 2020-09-03 02:10 | PC.NURSE ---
Pt medicated again with 1 mg of Ativan IVP while in CT per DRAFTING SUPERVISOR request. Pt unable to follow commands while in CT.
[2020-09-03] MEDS: ondansetron HCL 4 MG/2 ML VIAL IVPUSH (02:48)
[2020-09-03] MEDS: Ketamine HCl 500 MG/5 ML VIAL 150 MG IM (02:48)
--- NOTE | 2020-09-03 02:55 | PC.NURSE ---
MD and MACHINE PLASTER MIXER at bedside for LP. Pt medicated per MAR for LP. RT at bedside. VSS at this time.
--- NOTE | 2020-09-03 03:24 | PC.NURSE ---
MD and CUSTOMER ORDER CLERK UTO CSF. Plan for BCX, lactic and ABX. VSS at this time however pt remains drowsy after Ativan and Ketamine.
--- NOTE | 2020-09-03 03:35 | PC.NURSE ---
Plan to initially medicate with 362.872 mg of Ketamine. This RN removed one vial from the pyxis having wasted the 137.128 mg with Savage Robin RN. Since pt received [address] mg of Ativan during CT, decreased dose of Ketamine to 150 mg. This RN and Savage Robin RN wasting the remainder of Ketamine (212.872 mg) totalling a waste of 350 mg of Ketamine.
[2020-09-03] MEDS: cefTRIAXone sodium 2 GM in 0.9 % Sodium Chloride 50 ML IV (03:45)
--- NOTE | 2020-09-03 03:50 | PC.NURSE ---
Ceftriaxone infusing per MAR. This RN contacting Seda, Government Relations Analyst regarding Acyclovir infusion as it is not stocked in the [facility].
[2020-09-03 03:56] LABS: Lactic Acid 0.8 mmol/L (0.5-2.0)
--- NOTE | 2020-09-03 04:13 | PC.NURSE ---
Doxy infusing per MAR. VSS.
[2020-09-03 04:43] LABS: COVID-19 Test Negative (Negative)
--- NOTE | 2020-09-03 04:48 | PC.NURSE ---
This RN contacting nursing prepress supervisor and night pharmacy regarding Acyclovir order. Per nursing prepress supervisor and night pharmacy, Acyclovir not available at this time.
--- NOTE | 2020-09-03 05:21 | P.HPHOSP_ITS ---
History of Present Illness Date of Service: 09/03/20 Chief Complaint: altered mentation This is a 50-year-old female with history of hypertension, HLD who presents to the hospital brought in by family due to nausea, vomiting, diarrhea, has 2nd COVID vaccine 1 week ago, during triage apparently patient did not know where she was or what day was, she did respond to her name. I am unable to get any history from the patient as she somnolent after receiving sedatives in the ED to obtain imaging as well as LP. Patient at baseline is AO x4 according to her daughter. Patient had a heart rate of 104, temp of 98.4?, respiratory rate of 16, blood pressure 140/77, satting 100% on room air Labs are significant for WBC count of 11.1, hemoglobin of 11.8, PT of 15.4, INR of 1.3, alk-phos of 137, CRP of 0.63, ESR 54, UA negative, UDS negative, head CT showed no intracranial pathology, Abdominal CT showed no acute abdominal or pelvic inflammatory infectious process. Chest x-ray unremarkable LP was attempted multiple times in the ED but patient was not cooperating and was unsuccessful Unable to obtain review of system or Past Medical history from patient as she is somnolent Review of Systems Review of Systems: Yes Unobtainable due to mental condition and Unobtainable due to mental status PMFSH Medical History HLD (hyperlipidemia) HTN (hypertension) Social History Alcohol intake: unknown Smoking Status: Unknown if ever smoked Use of substances other than those prescribed or required for medical reasons: Unknown Advance Directives: No Advance Directives Information Provided: No Meds Allergies Allergy/AdvReac Type Severity Reaction Status Date / Time ibuprofen Allergy Unknown Verified 12/02/18 00:00 Active Medications: Current Medications Generic Name Dose Route Start Last Admin Trade Name Freq PRN Reason Stop Dose Admin Pharmacy Consult 1 each 09/03/20 05:13 Consult Rx Perform Med Rec MISCELLANE ONCE PRN Consult order Physical Exam Vital Signs and Narrative: Vital Signs: Last Vital Signs Temp 99.3 F 09/03/20 02:51 Pulse 91 09/03/20 04:14 Resp 16 09/03/20 04:14 BP 121/71 09/03/20 04:14 Pulse Ox 100 09/03/20 04:14 Body Mass Index 27.3 Const: Other: Somnolent, arousable only to painful stimuli General: no acute distress Eyes: General: appearance normal, both eyes and all related structures Resp: Effort & Inspection: normal respiratory effort Cardio: Rate: regular rate Rhythm: regular rhythm GI: Palpation (GI): Soft to palpation Auscultation: normal bowel sounds Skin: General skin exam: no rashes or lesions noted Extrem: General: Yes normal to inspection and Yes no pedal edema Results Labs CBC and Chem 7: 09/02/20 14:11 09/02/20 14:11 Labs: Laboratory Results - last 24 hr 09/02/20 09/02/20 09/02/20 14:11 14:11 14:11 MCV 77.7 L MCH 25.1 L MCHC 32.3 RDW 15.1 Plt Count 234 MPV 11.0 Immature Gran % (Auto) 0.8 H Neut % (Auto) 75.3 H Lymph % (Auto) 15.8 L Sampson % (Auto) 7.6 Eos % (Auto) 0.1 Baso % (Auto) 0.4 Lymph # (Auto) 1.8 Sampson # (Auto) 0.9 Eos # (Auto) 0.0 Baso # (Auto) 0.0 Abs Immat Gran (auto) 0.09 H Absolute Neuts (auto) 8.4 H Absolute Nucleated RBC 0.000 Nucleated RBC % (auto) 0.0 ESR PT 15.4 H INR 1.3 H APTT 32.8 Anion Gap 17 Estim Creat Clear Calc 122.1 Estimated GFR > 60 Random Glucose 176 H Lactic Acid Calcium 8.9 Total Bilirubin 0.4 AST 18 ALT 23 Alkaline Phosphatase 137 H Ammonia C-Reactive Protein 0.63 H Total Protein 8.5 H Albumin 4.2 Urine Color Urine Appearance Urine pH Ur Specific [place] Urine Protein Urine Glucose (UA) Urine Ketones Urine Blood Urine Nitrite Ur Leukocyte Esterase Urine RBC Urine WBC Ur Squamous Epith Cells Urine Bacteria Urine Mucus Urine Test Urine Opiates Screen Ur Barbiturates Screen Ur Phencyclidine Scrn Ur Amphetamines Screen U Benzodiazepines Scrn Urine Cocaine Screen U Marijuana (THC) Screen COVID-19 (CHERYLE) COVID-19 Clin Com 09/02/20 09/02/20 09/02/20 14:11 20:29 20:29 MCV MCH MCHC RDW Plt Count MPV Immature Gran % (Auto) Neut % (Auto) Lymph % (Auto) Sampson % (Auto) Eos % (Auto) Baso % (Auto) Lymph # (Auto) Sampson # (Auto) Eos # (Auto) Baso # (Auto) Abs Immat Gran (auto) Absolute Neuts (auto) Absolute Nucleated RBC Nucleated RBC % (auto) ESR 54 H PT INR APTT Anion Gap Estim Creat Clear Calc Estimated GFR Random Glucose Lactic Acid Calcium Total Bilirubin AST ALT Alkaline Phosphatase Ammonia C-Reactive Protein Total Protein Albumin Urine Color YELLOW Urine Appearance CLEAR Urine pH 6.0 Ur Specific [place] >= 1.030 H Urine Protein NEG Urine Glucose (UA) NEG Urine Ketones >=80 Urine Blood NEG Urine Nitrite NEG Ur Leukocyte Esterase NEG Urine RBC 0-2 Urine WBC 0-2 Ur Squamous Epith Cells TRACE Urine Bacteria NONE Urine Mucus 2+ Urine Test NEGATIVE Urine Opiates Screen Ur Barbiturates Screen Ur Phencyclidine Scrn Ur Amphetamines Screen U Benzodiazepines Scrn Urine Cocaine Screen U Marijuana (THC) Screen COVID-19 (CHERYLE) COVID-[employer] 09/02/20 09/03/20 09/03/20 20:29 00:04 03:22 MCV MCH MCHC RDW Plt Count MPV Immature Gran % (Auto) Neut % (Auto) Lymph % (Auto) Sampson % (Auto) Eos % (Auto) Baso % (Auto) Lymph # (Auto) Sampson # (Auto) Eos # (Auto) Baso # (Auto) Abs Immat Gran (auto) Absolute Neuts (auto) Absolute Nucleated RBC Nucleated RBC % (auto) ESR PT INR APTT Anion Gap Estim Creat Clear Calc Estimated GFR Random Glucose Lactic Acid 0.8 Calcium Total Bilirubin AST ALT Alkaline Phosphatase Ammonia 50 C-Reactive Protein Total Protein Albumin Urine Color Urine Appearance Urine pH Ur Specific [place] Urine Protein Urine Glucose (UA) Urine Ketones Urine Blood Urine Nitrite Ur Leukocyte Esterase Urine RBC Urine WBC Ur Squamous Epith Cells Urine Bacteria Urine Mucus Urine Test Urine Opiates Screen Not Detected Ur Barbiturates Screen Not Detected Ur Phencyclidine Scrn Not Detected Ur Amphetamines Screen Not Detected U Benzodiazepines Scrn Not Detected Urine Cocaine Screen Not Detected U Marijuana (THC) Screen Not Detected COVID-19 (CHERYLE) COVID-19 [employer] 09/03/20 04:15 MCV MCH MCHC RDW Plt Count MPV Immature Gran % (Auto) Neut % (Auto) Lymph % (Auto) Sampson % (Auto) Eos % (Auto) Baso % (Auto) Lymph # (Auto) Sampson # (Auto) Eos # (Auto) Baso # (Auto) Abs Immat Gran (auto) Absolute Neuts (auto) Absolute Nucleated RBC Nucleated RBC % (auto) ESR PT INR APTT Anion Gap Estim Creat Clear Calc Estimated GFR Random Glucose Lactic Acid Calcium Total Bilirubin AST ALT Alkaline Phosphatase Ammonia C-Reactive Protein Total Protein Albumin Urine Color Urine Appearance Urine pH Ur Specific [place] Urine Protein Urine Glucose (UA) Urine Ketones Urine Blood Urine Nitrite Ur Leukocyte Esterase Urine RBC Urine WBC Ur Squamous Epith Cells Urine Bacteria Urine Mucus Urine Test Urine Opiates Screen Ur Barbiturates Screen Ur Phencyclidine Scrn Ur Amphetamines Screen U Benzodiazepines Scrn Urine Cocaine Screen U Marijuana (THC) Screen COVID-19 (CHERYLE) Negative COVID-19 Clin Com See Note Imaging Radiologist's Impressions: Impressions Chest X-Ray 09/02/20 14:01 IMPRESSION: Unremarkable chest exam. Head CT 09/02/20 14:02 IMPRESSION: No acute intracranial process seen.. Abdomen/Pelvis CT 09/03/20 01:04 IMPRESSION: No acute abdominal or pelvic inflammatory or infectious processes. Automated exposure control (Care Dose) Adjustment of the mA and/or kv according to patient size (this includes techniques or standardized protocols for targeted exams where dose is matched to indication / reason for exam; i.e. extremities or head). Assessment and Plan (1) Encephalopathy: Status: Acute (2) Sepsis: Status: Acute This is a 50-year-old female with past medical history of hypertension and hyperlipidemia presents to the hospital altered. # encephalopathy - unclear etiology, possibly secondary to meningitis versus encephalitis - LP was attempted but unsuccessful - patient afebrile but has tachycardia, as well as leukocytosis - usually A&O x4 at baseline but currently only oriented to self, very abnormal for her according to daughter - had complained of nausea vomiting with diarrhea for 1 week to her family who brought into the hospital - abdominal CT negative, CT negative, chest x-ray negative, UA negative - negative UDS Plan: - will start on broad-spectrum antibiotic including HSV coverage - MRI in morning # sepsis - unclear etiology at this time - was started on vanc, ceftriaxone, and acyclovir - cultures pending - will obtain Lyme and CMV - will obtain MRI in a.m. - consult infectious disease # hypertension - stable - unclear what medication she takes at home DVT prophylaxis: Heparin subQ
--- NOTE | 2020-09-03 07:34 | PC.NURSE ---
Pt resting on stretcher, opens eyes to verbal stimuli. Able to recite name but answers no other orientation questions. Mouth dry. Able to move all extremities on command but generally weak. NSR on tele. Resp rate normal, no diff breathing noted. Will inquire about Acyclovir from pharmacy
--- NOTE | 2020-09-03 08:24 | PC.NURSE ---
Spoke with daughter Tree and updated on plan at this time. Also obtained med list. Daughter states pt no longer taking Metformin (DM controlled), other meds reconcilled. Awaiting Acylcovir dose from pharmacy
[2020-09-03] MEDS: 0.9 % Sodium Chloride Flush 3 ML SYRINGE IVFLUSH ×2 (09:00→17:00)
[2020-09-03] MEDS: Heparin Sodium,Porcine 5,000 UNIT/ML VIAL 5000 UNIT SUBCUT ×2 (09:00→20:19)
[2020-09-03] MEDS: vancomycin HCL 1,000 MG in 0.9 % Sodium Chloride 250 ML 270 MG IV ×2 (09:01→20:18)
--- NOTE | 2020-09-03 09:25 | PC.NURSE ---
Bladder scanned for 624, will contact hospitalist
--- NOTE | 2020-09-03 10:21 | PC.NURSE ---
MRI screening form completed with daughter Ifeanyi
--- NOTE | 2020-09-03 10:39 | PC.NURSE ---
Dr Garcia aware of bladder scan, new order for chauhan. Chauhan placed. Vanco and Acyclovir completed. Pt now off unit to MRI
--- NOTE | 2020-09-03 12:34 | PC.NURSE ---
Pt returned to unit from MRI, mental status unchanged from prior assessment. Ramírez patent, vitals stable.
[2020-09-03 15:36] LABS: Glucose, Whole Blood 103 mg/dL (60-115)
[2020-09-03 20:27] LABS: Glucose, Whole Blood 184 mg/dL (60-115)
--- NOTE | 2020-09-03 22:15 | P.CNID_ITS ---
History of Present Illness Data of Consult Service Date: 09/03/20 Requesting physician: Weston Garcia Primary Care Provider: Rivera Nicole MD HPI Reason for consult: encephalopathy She was brought in by sister for confusion She has had diarrhea last few three days and now confusion She is COVID negative She had Moderna vaccine for COVID on 08/27 She has no ill exposure She has no new meds,no substance ingestion or ill pets Review of Systems Review of Systems: Yes Unobtainable due to mental status Neurologic: Reports confusion Psychiatric: Psychiatric: Reports confusion [facility] Past Medical History Medical History HLD (hyperlipidemia) HTN (hypertension) Family History Family history: reviewed and not pertinent Social History Social History Household Members: Family Housing: Apartment Do you presently have visiting nurse or other home services: No Alcohol intake: unknown Smoking Status: Never smoker Second Hand Smoke Exposure: No Use of substances other than those prescribed or required for medical reasons: No Currently Displaying Signs/Symptoms of Drug Intoxication Withdrawal: No Have you been hit, kicked, punched, or otherwise hurt by someone within the past year? If so, by whom?: No Do you feel safe in your current relationship?: No Is there a partner from a previous relationship who is making you feel unsafe now?: No Are you made to feel afraid or neglected: No Spiritual Healthcare Practices: christianity Advance Directives: No Advance Directives Information Provided: No Do you have thoughts of harming others: None Do you have a plan to hurt others: No Plan Recently lost weight without trying: No service: No Current occupational status: employed Meds Allergies Allergy/AdvReac Type Severity Reaction Status Date / Time ibuprofen Allergy Unknown Verified 12/02/18 00:00 Active Medications: Current Medications Generic Name Dose Route Start Last Admin Trade Name Freq PRN Reason Stop Dose Admin Acetaminophen 650 mg 09/03/20 08:24 Acetaminophen 325 Mg Tablet PO Q6H PRN Pain, Mild (Pain Scale 1-3) Docusate Sodium 100 mg 09/03/20 08:24 Docusate Sodium 100 Mg Capsule PO DAILY PRN Constipation Heparin Sodium (Porcine) 5,000 unit 09/03/20 08:24 09/03/20 20:19 Heparin Sodium,Porcine 5,000 Unit/Ml Vial SUBCUT 5,000 unit Q12H TANISHA Administration Acyclovir Sodium 570 mg/ 111.4 mls @ 109.995 mls/hr 09/03/20 17:00 09/03/20 18:30 Dextrose IV Infused Q8H TANISHA Infusion Ceftriaxone Sodium 1 gm/ 50 mls @ 100 mls/hr 09/04/20 04:00 Sodium Chloride IV Q24H TANISHA Vancomycin HCl 1,000 mg/ 270 mls @ 270 mls/hr 09/03/20 09:00 09/03/20 21:44 Sodium Chloride IV Infused Q12H TANISHA Infusion Ondansetron HCl 4 mg 09/03/20 08:24 Ondansetron Hcl 4 Mg/2 Ml Vial IVPUSH Q8H PRN Nausea and Vomiting Pharmacy Consult 1 each 09/03/20 08:24 Consult Rx Vancomycin Dosing MISCELLANE DAILY PRN Consult order Sodium Chloride 3 ml 09/03/20 08:24 09/03/20 17:00 0.9 % Sodium Chloride Flush 3 Ml Syringe IVFLUSH 3 ml QSHIFT TANISHA Administration Home Medications Medication Instructions Recorded Confirmed Last Taken Type aspirin 1 tab PO DAILY 09/03/20 09/03/20 Unknown History atorvastatin 1 tab PO DAILY 09/03/20 09/03/20 Unknown History Physical Exam Vital Signs: Vital Signs: Last Vital Signs Temp 98.7 F 09/03/20 19:30 Pulse 102 H 09/03/20 19:30 Resp 17 09/03/20 19:30 BP 134/79 09/03/20 19:30 Pulse Ox 98 09/03/20 19:30 Body Mass Index 27.3 Const: General: cooperative and confusion Orientation/consciousness: confusion HENMT: Head: Yes normal to inspection Mouth: Normal oral and palatal mucosa present Eyes: General: appearance normal, both eyes and all related structures Neck: Neck: Yes no meningeal signs Resp: Effort & Inspection: normal respiratory effort Cardio: Rate: regular rate Rhythm: regular rhythm GI: Palpation (GI): Soft to palpation and nontender : General: Yes no CVA tenderness Back/Spine/Pelvis: Back: no CVA tenderness Skin: General skin exam: no rashes or lesions noted Neuro: General: no meningeal signs, no focal motor deficits, confusion and Unable to assess gait Gait exam (Neuro): Unable to assess gait Results Labs CBC & Chem 7: 09/04/20 04:38 09/04/20 04:38 Assessment and Plan (1) Encephalopathy: Status: Acute Would continue Ceftriaxone ,Vancomycin and Acyclovir as well LP by IR Saturday unless improves Add Doxycycline cover tick borne infection Check HIV
[2020-09-03] MEDS: Doxycycline Hyclate 100 MG in 0.9 % Sodium Chloride 250 ML 166.67 MG IV (23:00)
[2020-09-03 23:48] LABS: HIV AB/AG Nonreactive (Nonreactive); HIV Num 1 0.06 S/CO (0.00-0.99)
[2020-09-04] MEDS: 0.9 % Sodium Chloride Flush 3 ML SYRINGE IVFLUSH ×3 (01:47→21:25)
[2020-09-04 03:07] LABS: Lyme Abs Screen <0.90 index
[2020-09-04 04:00] VITALS: BP 118/72; PULSE 86; RESP 18; TEMP 36.3; O2SAT 96
[2020-09-04] MEDS: cefTRIAXone sodium 1 GM in 0.9 % Sodium Chloride 50 ML IV (05:05)
[2020-09-04 05:25] LABS: MANUAL DIFF FLAG NO
[2020-09-04 05:43] LABS: Basophils Percent Auto 0.3 % (0-2); Eosinophils Absolute Auto 0.1 X10*3/uL (0.0-0.4); Eosinophils Percent Auto 1.5 % (0-4); Hematocrit 35.3 % (37-47); Hemoglobin 11.2 g/dl (12.0-16.0); Imm Gran Abs Auto 0.03 X10*3/uL (0.00-0.03); Imm Gran Pct Auto 0.3 % (0.0-0.4); Lymphocytes Absolute Auto 2.5 X10*3/uL (1.2-4.9); Lymphocytes Percent Auto 26.2 % (20-40); Mean Corpuscular HGB Conc 31.7 g/dl (31.0-35.0); Mean Corpuscular Hemoglobin 24.8 pg (27.0-33.0); Mean Corpuscular Volume 78.1 fL (80-98); Mean Platelet Volume 11.4 fL (9.4-12.3); Monocytes Absolute Auto 0.8 X10*3/uL (0.1-1.2); Monocytes Percent Auto 8.9 % (2-11); Neutrophils Absolute Auto 5.9 X10*3/uL (2.0-8.3); Neutrophils Percent Auto 62.8 % (45-73); Platelet Count 245 X10*3/uL (160-400); Red Blood Count 4.52 X10*6/uL (4.20-5.50); Red Cell Distribution Width 15.4 % (11.0-16.0); White Blood Count 9.4 X10*3/uL (4.8-10.8)
[2020-09-04 06:01] LABS: Anion Gap 17 (12-20); Blood Urea Nitrogen 13 mg/dL (9-16); Calcium 8.6 mg/dL (8.4-10.2); Carbon Dioxide 22 mmol/L (22-29); Chloride 102 mmol/L (96-108); Creatinine Clr Calc Pharmacy 105.8; Estimated Glomerular Filt Rate > 60; Glucose Random 125 mg/dL (60-115); Potassium 4.2 mmol/L (3.3-5.1); Sodium 137 mmol/L (135-145)
[2020-09-04 08:00] VITALS: BP 127/76; PULSE 85; RESP 18; TEMP 36.2; O2SAT 98
[2020-09-04 08:19] LABS: Glucose, Whole Blood 121 mg/dL (60-115)
[2020-09-04] MEDS: Heparin Sodium,Porcine 5,000 UNIT/ML VIAL 5000 UNIT SUBCUT ×2 (09:08→19:48)
[2020-09-04] MEDS: vancomycin HCL 1,000 MG in 0.9 % Sodium Chloride 250 ML 270 MG IV (10:59)
[2020-09-04 11:16] VITALS: BP 131/74; PULSE 100; RESP 18; TEMP 36.2; O2SAT 98
[2020-09-04 11:49] LABS: Glucose, Whole Blood 213 mg/dL (60-115)
[2020-09-04] MEDS: Doxycycline Hyclate 100 MG in 0.9 % Sodium Chloride 250 ML 166.67 MG IV (13:15)
--- NOTE | 2020-09-04 13:20 | MHC.CM.PN ---
CM MET WITH PT WITH THE ASSISTANCE OF A REHAB SPECIALIST. PT REPORTS SHE LIVES WITH HER PARENTS AND HER DAUGHTER. 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 PT DOES NO USE DME OR SERVICES. PT DOES NOT HAVE A HCP BUT DID AGREE TO TAKE INFORMATION AND A BLANK DOCUMENT TO CONSIDER FURTHER. CURRENT DC PLAN IS HOME WITH NO SERVICES PT TO SELF ARRANGE TRANSPORT
[2020-09-04 15:29] VITALS: BP 120/73; PULSE 93; RESP 14; TEMP 36.7; O2SAT 98
[2020-09-04 16:42] LABS: Glucose, Whole Blood 141 mg/dL (60-115)
--- NOTE | 2020-09-04 17:10 | P.PNIM_ITS ---
Subjective Subjective Date of Service: 09/05/20 Interval History: Patient awake alert this morning denies nausea vomiting or diarrhea, as per patient 4 days ago she had a buffet soon after eating did not feel well, no overnight issues, patient denies any headache lightheadedness or dizziness. ROS General no headache, no dizziness ,no fever, chills. CVS no chest pain, no palpitation. Respiratory no cough, no sob. Gastrointestinal no nausea,no vomiting, no abdominal pain Physical Exam Vital Signs: Vital Signs: Last Vital Signs Temp 98.1 F 09/04/20 15:29 Pulse 93 09/04/20 15:29 Resp 14 09/04/20 15:29 BP 120/73 09/04/20 15:29 Pulse Ox 98 09/04/20 15:29 Body Mass Index 27.3 General patient resting comfortably, no acute distress. Neck able to touch chin to chest, no JVD. CVS regular rate rhythm, Respiratory lungs clear to auscultation, no respiratory distress, no wheeze, no rhonchi. Gastrointestinal abdomen soft, nontender, bowel sounds audible, no guarding , no rigidity. Extremities no clubbing cyanosis or edema. Neuro nonfocal Skin no rash Objective Data Current Medications Generic Name Dose Route Start Last Admin Trade Name Freq PRN Reason Stop Dose Admin Acetaminophen 650 mg 09/03/20 08:24 Acetaminophen 325 Mg Tablet PO Q6H PRN Pain, Mild (Pain Scale 1-3) Docusate Sodium 100 mg 09/03/20 08:24 Docusate Sodium 100 Mg Capsule PO DAILY PRN Constipation Heparin Sodium (Porcine) 5,000 unit 09/03/20 08:24 09/04/20 09:08 Heparin Sodium,Porcine 5,000 Unit/Ml Vial SUBCUT 5,000 unit Q12H [facility] Administration Acyclovir Sodium 570 mg/ 111.4 mls @ 109.995 mls/hr 09/03/20 17:00 09/04/20 10:27 Dextrose IV Infused Q8H [facility] Infusion Ceftriaxone Sodium 1 gm/ 50 mls @ 100 mls/hr 09/04/20 04:00 09/04/20 06:35 Sodium Chloride IV Infused Q24H [facility] Infusion Vancomycin HCl 1,000 mg/ 270 mls @ 270 mls/hr 09/03/20 09:00 09/04/20 12:26 Sodium Chloride IV Infused Q12H [facility] Infusion Doxycycline Hyclate 100 mg/ 250 mls @ 166.67 mls/hr 09/03/20 23:00 09/04/20 15:01 Sodium Chloride IV Infused Q12H [facility] Infusion Insulin Human Lispro 0 unit 09/04/20 16:30 Insulin Lispro 100 Unit/Ml 3 Ml Vial SUBCUT QIDACHS [facility] Protocol Ondansetron HCl 4 mg 09/03/20 08:24 Ondansetron Hcl 4 Mg/2 Ml Vial IVPUSH Q8H PRN Nausea and Vomiting Pharmacy Consult 1 each 09/03/20 08:24 Consult Rx Vancomycin Dosing MISCELLANE DAILY PRN Consult order Sodium Chloride 3 ml 09/03/20 08:24 09/04/20 09:08 0.9 % Sodium Chloride Flush 3 Ml Syringe IVFLUSH 3 ml QSHIFT [facility] Administration Labs CBC & Chem 7: 09/04/20 04:38 09/04/20 04:38 Microbiology Microbiology Results: Microbiology 09/03/20 03:22 Blood - Venous Blood Culture - Preliminary No growth after 24 hours. 09/03/20 03:22 Blood - Venous Blood Culture - Preliminary No growth after 24 hours. Assessment and Plan (1) Encephalopathy: Status: Acute Assessment and Plan: 50-year-old female with past medical history of hypertension and hyperlipidemia presents to the hospital altered. # acute toxic/metabolic encephalopathy - resolved is of unclear etiology, blood cultures x2 negative, all workup including head CT, abdominal and pelvic CT and chest x-ray unremarkable UA benign, no electrolyte abnormality,Utox neg. Initially felt to have meningitis versus encephalitis, LP was attempted but unsuccessful, brain MRI this morning is unremarkable Since patient awake alert, afebrile and blood cultures negative will discontinue all oral IV antibiotics, case discussed with Dr. Jeong. No sepsis since no source of infection found, tachycardia resolved , had mild leukocytosis that is resolved # hypertension - stable, will resume home medications upon dc. # diabetes continue diabetic diet blood sugars are stable. DVT prophylaxis: Heparin subQ
[2020-09-04 18:58] VITALS: BP 126/76; PULSE 95; RESP 16; TEMP 36.6; O2SAT 97
[2020-09-04 20:33] LABS: Vancomycin Trough 8.2 mcg/mL (10.0-20.0)
[2020-09-04 20:34] LABS: Glucose, Whole Blood 149 mg/dL (60-115)
[2020-09-04 23:18] VITALS: BP 125/71; PULSE 95; RESP 20; TEMP 36.3; O2SAT 97
[2020-09-05 03:24] VITALS: BP 126/81; PULSE 92; RESP 19; TEMP 36.3; O2SAT 95
[2020-09-05 07:31] VITALS: BP 127/72; PULSE 98; RESP 15; TEMP 36.5; O2SAT 98
[2020-09-05 07:48] LABS: Glucose, Whole Blood 137 mg/dL (60-115)
[2020-09-05] MEDS: 0.9 % Sodium Chloride Flush 3 ML SYRINGE IVFLUSH (09:07)
[2020-09-05] MEDS: Heparin Sodium,Porcine 5,000 UNIT/ML VIAL 5000 UNIT SUBCUT (09:07)
[2020-09-05 11:30] VITALS: BP 133/76; PULSE 84; RESP 15; TEMP 36.8; O2SAT 100
--- NOTE | 2020-09-05 11:34 | PC.NURSE ---
Per MD, Catheter removed at 11:30 without issue, patient tolerated well, tubing intact
[2020-09-05 11:39] LABS: Glucose, Whole Blood 158 mg/dL (60-115)
[2020-09-05] MEDS: Insulin Lispro 100 UNIT/ML 3 ML VIAL SUBCUT (12:07)
--- NOTE | 2020-09-05 12:45 | PM.DS ---
DS: Providers Provider Date of Service: 09/05/20 Date of admission: 09/03/20 05:20 Primary care physician: Rivera Nicole MD Consults: 09/03/20 08:24 Consult to Infectious Diseases Routine Consulting Provider: Melissa Jeong Reason for consultation: encephalopathy Has provider been notified: No DS: Diagnosis Discharge Diagnosis (1) Encephalopathy: Status: Acute DS: Medications Discharge Medications Home Medications: Home Medications Medication Instructions Recorded Confirmed aspirin 1 tab PO DAILY 09/03/20 09/03/20 atorvastatin 1 tab PO DAILY 09/03/20 09/03/20 DS: Summary Hospital Course Hospital Course: Chief Complaint: altered mentation This is a 50-year-old female with history of hypertension, HLD who presents to the hospital brought in by family due to nausea, vomiting, diarrhea, has 2nd COVID vaccine 1 week ago, during triage apparently patient did not know where she was or what day was, she did respond to her name. I am unable to get any history from the patient as she somnolent after receiving sedatives in the ED to obtain imaging as well as LP. Patient at baseline is AO x4 according to her daughter. Patient had a heart rate of 104, temp of 98.4?, respiratory rate of 16, blood pressure 140/77, satting 100% on room air Labs are significant for WBC count of 11.1, hemoglobin of 11.8, PT of 15.4, INR of 1.3, alk-phos of 137, CRP of 0.63, ESR 54, UA negative, UDS negative, head CT showed no intracranial pathology, Abdominal CT showed no acute abdominal or pelvic inflammatory infectious process. Chest x-ray unremarkable LP was attempted multiple times in the ED but patient was not cooperating and was unsuccessful Hospital course 50-year-old female with past medical history of hypertension and hyperlipidemia presents to the hospital altered. # acute toxic/metabolic encephalopathy Confusion resolved was of unclear etiology, blood cultures x2 negative, all workup including head CT, abdominal and pelvic CT and chest x-ray unremarkable UA benign, no electrolyte abnormality, Utox neg. Initially felt to have meningitis versus encephalitis, LP was attempted but unsuccessful, brain MRI is unremarkable, patient was initially treated with IV acyclovir, vancomycin and ceftriaxone Since patient afebrile and blood cultures negative all antibiotics, discontinued, No sepsis since no source of infection found, tachycardia resolved , had mild leukocytosis that has resolved, patient is now awake alert ambulating in room therefore being discharged home with recommendation to rest and drink plenty of fluids, likely symptoms were related to nausea vomiting diarrhea that started after she had a buffet 4-5 days prior to presentation. Patient received her 1st COVID vaccine on August 23 less likely contributed to above symptoms # hypertension - stable, will recommend to hold Norvasc since blood pressure remains stable off Norvasc, outpatient follow-up with PCP ,if systolic blood pressure noted to be persistently above 135 than can be restarted Back on Norvasc # diabetes continue diabetic diet blood sugars are stable. Time Spent with Patient Time attestation: Total time spent providing and/or coordinating discharge services: Discharge coordination time: Greater than 30 minutes Physical Exam Vital Signs: Vital Signs: Last Vital Signs Temp 98.2 F 09/05/20 11:30 Pulse 84 09/05/20 11:30 Resp 15 09/05/20 11:30 BP 133/76 09/05/20 11:30 Pulse Ox 100 09/05/20 11:30 Body Mass Index 27.3 General no acute distress. Neck able to touch chin to chest, no JVD. CVS regular rate rhythm, Respiratory lungs clear to auscultation, no respiratory distress, no wheeze, no rhonchi. Gastrointestinal abdomen soft, nontender, bowel sounds audible, no guarding , no rigidity. Extremities no clubbing cyanosis or edema. Neuro nonfocal, awake alert x3 , speech is clear Skin no rash DS: Data Data Completed and Pending Labs on day of discharge: Laboratory Results - last 24 hr 09/03/20 09/04/20 09/04/20 03:22 16:37 19:57 POC Glucose 141 H Vancomycin Trough 8.2 L Lyme Progressive Test TNP 09/04/20 09/05/20 09/05/20 20:20 07:29 11:32 POC Glucose 149 H 137 H 158 H Vancomycin Trough Lyme Progressive Test Preliminary micro results at discharge 09/03/20 03:22 Blood Culture - Preliminary Blood - Venous No growth after 48 hours. 09/03/20 03:22 Blood Culture - Preliminary Blood - Venous No growth after 48 hours. Discharge Plan Discharge Patient Disposition: Home, Self-Care Referrals: Name,MD Rivera [Primary Care Provider] - Discharge Medications: Continued atorvastatin 20 mg tablet 1 tab PO DAILY RF: 0 aspirin 81 mg tablet,delayed release (DR/EC) 1 tab PO DAILY RF: 0 Discontinued amlodipine 5 mg tablet 1 tab PO DAILY RF: 0 Discharge Orders: Discharge Order (Routine); Ordered 09/05/20 Ordered By: Azar Mireles Diet: advance to usual diet Activity on Discharge: As tolerated Stand Alone Forms: Patient Portal Discharge page Care Plan Goals: Rest drink fluids, hold Norvasc since blood pressure is noted to be within normal range resume Norvasc if noted to have elevated systolic blood pressure above 135 Health Concerns: Encephalopathy resolved Plan of Treatment: Outpatient follow-up with PCP in 1 week
--- NOTE | 2020-09-05 12:49 | MHC.CM.PN ---
PT DISCHARGING TODAY HOME SELF-CARE, PT WILL ARRANGE RIDE.
[2020-09-05 17:22] LABS: Lyme Abs Screen <0.90 index
[2020-09-05 22:13] LABS: CMV DNA PCR Qn Source Whole Blood; CMV DNA Qn PCR <2.30 log IU/mL (<2.30); CMV DNA Qn Real Time PCR <200 IU/mL (<200)
[2020-09-06 04:27] LABS: A. Phagocytophilum Ab IgG <1:64 (<1:64); A. Phagocytophilum Ab IgM <1:20 (<1:20); E. Chaffeensis Ab IgG <1:64 (<1:64); E. Chaffeensis Ab IgM <1:20 (<1:20)
[2020-09-07 14:17] LABS: Babesia IgM <1:20 titer (<1:20)
== END 2020-09-05 13:51 | disposition home or self-care (01) | DRG 52 ==
LOC: HO.ED 09-03 03:22 → HO.EDOVER 09-03 05:37 → HO.S3 09-03 13:24
PROVIDERS: Internal Medicine; Nurse Practitioner Family; Nurse Practitioner Primary Care; Admitting Provider Internal Medicine; Emergency Provider Emergency Medicine Emergency Medical Services; PCP Internal Medicine Geriatric Medicine; Visit Provider Hospitalist
DX: G92 Toxic encephalopathy (principal); E11.9 Type 2 diabetes mellitus without complications; E78.5 Hyperlipidemia, unspecified; I10 Essential (primary) hypertension; Z20.822 Contact with and (suspected) exposure to COVID-19; Z88.6 Allergy status to analgesic agent; Z79.82 Long term (current) use of aspirin; Z79.899 Other long term (current) drug therapy
CPT/HCPCS: 36415; 70450; 70553; 71045; 74176; 80048; 80053; 80202; 80307; 81001; 81025; 82140; 82947; 83605; 85025; 85610; 85652; 85730; 86140; 86618; 86666; 86753; 87040; 87389; 87497; 87635; 93005; 96361; 96365; 96366; 96368; 96372; 96375; 99285; 99291; 99292; A9585; J0133; J0696; J2060; J2405; J3370

== ENCOUNTER 2021-11-14 12:43 | Outpatient (REF) | payer MEDICAID, SELFPAY ==
--- NOTE | ~2021-11-14 | MM_ITS ---
EXAMINATION: MM SCREENING DIGITAL BREAST TOMOSYNTHESIS, BILATERAL CLINICAL INFORMATION: Screening. Asymptomatic. The lifetime risk of breast cancer based on the Tyrer-Cuzick Model is 9.1%. COMPARISON: Mammography: November 25, 2018 and studies dating back to October 24, 2015 TECHNIQUE: Digital breast tomosynthesis is performed in both the craniocaudal and mediolateral oblique views along with computer-aided detection (CAD). Synthesized 2D images are generated from the tomosynthesis. FINDINGS: There are scattered areas of fibroglandular density (ACR BI-RADS breast composition Category b). There are no new significant masses, abnormal calcifications, or other abnormalities. MM/MM tomosynthesis screening BI IMPRESSION: There are no significant changes from prior study. ASSESSMENT: BI-RADS 1: Negative RECOMMENDATION: Routine annual mammography screening. This patient's information was entered into a reminder system with a target due date for their next mammogram.
== END 2021-11-14 12:44 | disposition home or self-care (01) ==
LOC: HO.MAMMO 12:43
PROVIDERS: PCP Internal Medicine Geriatric Medicine; Visit Provider Internal Medicine Geriatric Medicine
DX: Z12.31 Encounter for screening mammogram for malignant neoplasm of breast (principal)
CPT/HCPCS: 77063; 77067

== ENCOUNTER 2022-12-13 09:55 | Outpatient (REF) | payer MEDICAID, SELFPAY ==
--- NOTE | ~2022-12-13 | MM_ITS ---
EXAMINATION: MM SCREENING DIGITAL BREAST TOMOSYNTHESIS, BILATERAL CLINICAL INFORMATION: Screening. Asymptomatic. The lifetime risk of breast cancer based on the Tyrer-Cuzick Model is 10.0%. COMPARISON: Mammography: This study is compared with prior exams dating back to 2018. TECHNIQUE: Digital breast tomosynthesis is performed in both the craniocaudal and mediolateral oblique views along with computer-aided detection (CAD). Synthesized 2D images are generated from the tomosynthesis. FINDINGS: There are scattered areas of fibroglandular density (ACR BI-RADS breast composition Category b). There are no significant masses, abnormal calcifications, or other abnormalities. MM/MM tomosynthesis screening BI IMPRESSION: No mammographic evidence of malignancy. ASSESSMENT: BI-RADS BI-RADS 1 - Negative RECOMMENDATION: Routine annual mammography screening. 1 year F/U This examination should not preclude the clinical evaluation of a suspicious palpable abnormality. This patient's information was entered into a reminder system with a target due date for their next mammogram.
== END 2022-12-13 09:56 | disposition home or self-care (01) ==
LOC: HO.MAMMO 09:55
PROVIDERS: PCP Internal Medicine Geriatric Medicine; Visit Provider Internal Medicine Geriatric Medicine
DX: Z12.31 Encounter for screening mammogram for malignant neoplasm of breast (principal)
CPT/HCPCS: 77063; 77067

== ENCOUNTER → 2022-12-13 10:00 | Outpatient (BNV) | payer MEDICAID, SELFPAY | PROVIDERS: PCP Internal Medicine Geriatric Medicine; Visit Provider Radiology Diagnostic Radiology | DX: Z12.31 Encounter for screening mammogram for malignant neoplasm of breast (principal) | CPT/HCPCS: 77063; 77067 ==

== ENCOUNTER 2022-12-17 10:37 | Outpatient (REF) | payer MEDICAID, SELFPAY | END 2022-12-17 10:38 | disposition home or self-care (01) | LOC: HO.HHCL 10:37 | PROVIDERS: Visit Provider Internal Medicine Geriatric Medicine | DX: E11.9 Type 2 diabetes mellitus without complications (principal) | CPT/HCPCS: 36415; 83036 ==

== ENCOUNTER 2023-02-13 15:42 | Outpatient (REF) | payer MEDICAID, SELFPAY ==
[2023-02-13 18:02] LABS: Anion Gap 13 (12-20); Blood Urea Nitrogen 12 mg/dL (9-16); Calcium 9.8 mg/dL (8.4-10.2); Carbon Dioxide 26 mmol/L (22-29); Chloride 107 mmol/L (96-108); Estimated Glomerular Filt Rate > 60; Glucose Random 100 mg/dL (60-115); Potassium 4.6 mmol/L (3.3-5.1); Sodium 141 mmol/L (135-145)
[2023-02-13 18:48] LABS: Creatinine Urine 62.12 mg/dL; Microalbum/Creatinine Ratio Ur 11.2 ug/mg cr (<30)
== END 2023-02-13 15:43 | disposition home or self-care (01) ==
LOC: HO.HHCL 15:42
PROVIDERS: Visit Provider Internal Medicine Geriatric Medicine
DX: E11.649 Type 2 diabetes mellitus with hypoglycemia without coma (principal)
CPT/HCPCS: 36415; 80048; 82043; 82570

== ENCOUNTER 2023-09-27 08:24 | Outpatient (REF) | payer MEDICAID, SELFPAY ==
[2023-09-27 12:44] LABS: Creatinine Urine 71.48 mg/dL; Microalbum/Creatinine Ratio Ur 16.7 ug/mg cr (<30)
[2023-09-27 12:48] LABS: Alanine Aminotransferase 23 U/L (0-31); Albumin Level 3.8 g/dL (3.5-5.0); Alkaline Phosphatase 151 U/L (39-117); Anion Gap 9 (12-20); Aspartate Amino Transferase 26 U/L (5-31); Bilirubin Total 0.2 mg/dL (0.0-1.0); Blood Urea Nitrogen 13 mg/dL (9-16); Calcium 8.9 mg/dL (8.4-10.2); Carbon Dioxide 29 mmol/L (22-29); Chloride 106 mmol/L (96-108); Cholesterol 119 mg/dL (<200); Estimated Glomerular Filt Rate > 60; Glucose Random 100 mg/dL (60-115); HDL Cholesterol 44 mg/dL (>40); LDL Cholesterol Calculated 61 mg/dL (<100); Potassium 4.4 mmol/L (3.3-5.1); Sodium 140 mmol/L (135-145); Total Protein 7.8 g/dL (6.5-8.0); Triglycerides 70 mg/dL (<150)
== END 2023-09-27 08:25 | disposition home or self-care (01) ==
LOC: HO.HHCL 08:24
PROVIDERS: Visit Provider Internal Medicine Geriatric Medicine
DX: E11.9 Type 2 diabetes mellitus without complications (principal); I10 Essential (primary) hypertension
CPT/HCPCS: 36415; 80053; 80061; 82043; 82570

== ENCOUNTER 2023-12-27 | Outpatient (REF) | payer MEDICAID, SELFPAY ==
--- NOTE | ~2023-12-27 | XR_ITS ---
EXAMINATION: XR HAND, LEFT CLINICAL INFORMATION: Hand pain for 2 weeks. COMPARISON: None available. TECHNIQUE: PA, lateral, and oblique views of the left hand. FINDINGS: The bones and soft tissues are normal. No fracture. Alignment is anatomic. Joint spaces are maintained. No erosions or soft tissue calcifications. XR/XR hand LT min 3V IMPRESSION: Normal left hand. Electronically signed by: Erik Hamlin MD 02/13/2024 09:58 PM EDT RP
== END 2023-12-27 00:01 | disposition home or self-care (01) ==
LOC: HO.HHCX
PROVIDERS: PCP Internal Medicine Geriatric Medicine; Visit Provider Internal Medicine Geriatric Medicine
DX: M79.642 Pain in left hand (principal)
CPT/HCPCS: 73130

== ENCOUNTER 2024-01-02 15:13 | Outpatient (REF) | payer MEDICAID, SELFPAY | END 2024-01-02 15:14 | disposition home or self-care (01) | LOC: HO.MAMMO 15:13 | PROVIDERS: PCP Internal Medicine Geriatric Medicine; Visit Provider Internal Medicine Geriatric Medicine | DX: Z12.31 Encounter for screening mammogram for malignant neoplasm of breast (principal) | CPT/HCPCS: 77063; 77067 ==

== ENCOUNTER → 2024-01-02 15:30 | Outpatient (BNV) | payer MEDICAID, SELFPAY | PROVIDERS: PCP Internal Medicine Geriatric Medicine; Visit Provider Radiology Diagnostic Radiology | DX: Z12.31 Encounter for screening mammogram for malignant neoplasm of breast (principal) | CPT/HCPCS: 77063; 77067 ==

== ENCOUNTER 2024-03-31 17:29 | Outpatient (REF) | payer MEDICAID, SELFPAY ==
[2024-04-01 13:53] LABS: Bacterial Vaginosis PCR NEGATIVE (Negative); Candida Group PCR NOT DETECTED (Not Detect); Candida glab krusei PCR DETECTED (Not Detect); Trichomonas vaginalis PCR NOT DETECTED (Not Detect)
[2024-04-02 17:53] LABS: HPV mRNA E6/E7 Not Detected (Not Detected)
== END 2024-03-31 17:30 | disposition home or self-care (01) ==
LOC: HO.HHCLNP 17:29
PROVIDERS: Visit Provider Advanced Practice Midwife
DX: R21 Rash and other nonspecific skin eruption (principal)
CPT/HCPCS: 0352U; 87624; 88175

== ENCOUNTER 2024-04-14 10:54 | Outpatient (REF) | payer MEDICAID, SELFPAY ==
--- NOTE | ~2024-04-14 | US_ITS ---
EXAMINATION: US PELVIS CLINICAL INFORMATION: Postmenopausal bleeding. COMPARISON: CT abdomen/pelvis 09/03/2020. TECHNIQUE: Ultrasound of the pelvis is performed using both transabdominal and transvaginal transducers along with Doppler. Transvaginal imaging is performed due to inadequate visualization transabdominally. FINDINGS: Anteverted uterus with normal morphology measuring 5.7 x 2 x 4.3 cm. No uterine mass. Homogeneous endometrium measuring 0.2 cm in thickness. No focal endometrial abnormality. Normal ovary morphology and size. The right ovary measures 2.3 x 0.8 x 0.9 cm, 0.9 mL. The left ovary measures 1.9 x 1.1 x 1.1 cm, 1.2 mL. No adnexal mass or free fluid. US/US pelvic and transvaginal IMPRESSION: No acute sonographic abnormalities. Electronically signed by: Bibi Sandoval MD 04/14/2024 04:50 PM [facility]
== END 2024-04-14 10:55 | disposition home or self-care (01) ==
LOC: HO.US 10:54
PROVIDERS: PCP Internal Medicine Geriatric Medicine; Visit Provider Advanced Practice Midwife
DX: N95.0 Postmenopausal bleeding (principal)
CPT/HCPCS: 76830; 76856

== ENCOUNTER 2024-10-06 08:12 | Outpatient (REF) | payer MEDICAID, SELFPAY ==
--- OUTSIDE RECORDS SUMMARY | 2024-10-06 08:27 | XMS_ITS | Encounter Summary ---
Author Organization [employer] Address [address] [place] [address] Care Team Providers Care Chief Clinical Dietitian Name Role Phone NameRivera MD Primary Care Provider [phone] Taylor Shipley PharmD Unavailable [phone] Reason for Visit * Reason Onset Date Comments Appointment Request 03/09/2024 Encounter Details Date Type Department Care Team ([facility] st Contact Info) Description 03/09/2024 Telephone [facility] [address], [place] [id number] Name, MD Rivera [address] [place] [address] Appointment Request Social History Tobacco Use Types Packs/Day Years Used Date Smoking Tobacco: Never Smokeless Tobacco: Never Alcohol Use Standard Drinks/Week Comments Never 0 (1 standard drink = 0.6 oz pur e alcohol) Alcohol Answer Date Recorded Frequency of Alcohol Consumption Not on file 12/25/2023 Average Number of Drinks Not on file 024 Frequency of Binge Drinking Not on file 12/08 Score 0 12/25/2023 Depression Answer Date Recorded Patient Health Questionnaire-9 Score 0 09/11/2023 Patient Health Questionnaire-9 Score 0 09/11/2023 Last PHQ-9: Questionnaire Data Not on file 0 09/11/2023 Housing Stability Answer Date Recorded What is your housing situation today? I have beto rhodes 12/25/[address] you li ve. Do you have problems with any of the following? None of the above 12/25/2023 Food Insecurity Answer Date Recorded Within the past 12 months, y ou worried that your food would run out before you got money to buy more: Never True 12/25/2023 Within the past 12 months,th e food you bought just didn't last and you didn't have enough money to get more: Never True Transportation Answer Date Recorded In the past 12 months, has l ack of transportation kept you from medical appts, meetings, work or from getting things needed for daily living? No 12/25/2023 Utilities Answer Date Recorded In the past 12 months, has t he electric, gas, oil or water company threatened to shut off services in your home? No 12/25/2023 Depression Answer Date Recorded Patient Health Questionnaire-2 Score 0 09/11/2023 Internet Access Answer Date Recorded Internet Access Q1 No 02/10/2024 Internet Access Q2 I do not want or need it 07/2023 Comments Unknown Sex and Gender Information Value Date Recorded Sex Assigned at Female 04/09/2022 10:28 AM EDT Legal Sex Female 10:28 AM EDT Gender Identity Female 04/09/2022 10:28 AM EDT Sexual Orientation Straight 04/09/2022 10 :28 AM EDT documented as of this encounter Miscellaneous Notes * Telephone Encounter - Manny Prieto - 03/09/2024 11:11 AM EDT Tc from patient calling to reschedule appt from 03/[address] Blum documented in this encounter Plan of Treatment Not on file documented as of this encounter Goals Goal Patient Goal Type Associated Problems Recent Progress Patient-Stated? Author Blood Pressure < 140/90 Blood Pressure 141/79(2024 10:48 AM EDT) No Puia, Taylor, PharmD Hemoglobin A1c < 7 Result Component 7(09/21/2024 10:42 AM EDT) No Puia, Taylor, PharmD documented as of this encounter Visit Diagnoses Not on filedocumented in this encounter Additional Health Concerns Assessment Noted Time PHQ-9 Depression Total Score: 0 09/11/19 24 3:39 PM EDT documented as of this encounter Care Teams Chief Clinical Dietitian Relationship Specialty Start Date End Date Name, MD Rivera [address] [place] [address] PCP - General Family Medicine 11/01/15 Taylor Shipley, [place] [address] [place] [address] Pharmacist Internal Medicine 08/01/21 documented as of this encounter
--- OUTSIDE RECORDS SUMMARY | 2024-10-06 08:27 | XMS_ITS | Encounter Summary ---
Author Organization [employer] Address [address] [place] [address] Care Team Providers Care Cycle Director Name Role Phone NameRivera MD Primary Care Provider [phone] Taylor Shipley PharmD Unavailable [phone] Reason for Visit * Reason Comments Med Refill Encounter Details Date Type Department Care Team ([facility] Contact Info) Description 04/01/2023 Refill [facility] [address] [place], [place] [id number] Name, MD Rivera [address] [place] [address] Social History Tobacco Use Types Packs/Day Years Used Date Smoking Tobacco: Never Smokeless Tobacco: Never Alcohol Use Standard Drinks/Week Comments Never 0 (1 standard drink = 0.6 oz pur e alcohol) Depression Answer Date Recorded Patient Health Questionnaire-9 Score 0 06/13/2022 Housing Stability Answer Date Recorded What is your housing situation today? I have beto rhdoes 04/01/[address] you li ve. Do you have problems with any of the following? None of the above 04/01/2023 Food Insecurity Answer Date Recorded Within the past 12 months, y ou worried that your food would run out before you got money to buy more: Never True 04/01/2023 Within the past 12 months,th e food you bought just didn't last and you didn't have enough money to get more: Never True Transportation Answer Date Recorded In the past 12 months, has l ack of transportation kept you from medical appts, meetings, work or from getting things needed for daily living? No 04/01/2023 Utilities Answer Date Recorded In the past 12 months, has t he electric, gas, oil or water company threatened to shut off services in your home? No 04/01/2023 Depression Answer Date Recorded Patient Health Questionnaire-2 Score 0 06/13/2022 Comments Unknown Sex and Gender Information Value Date Recorded Sex Assigned at Female 04/09/2022 10:28 AM EDT Legal Sex Female 10:28 AM EDT Gender Identity Female 04/09/2022 10:28 AM EDT Sexual Orientation Straight 04/09/2022 10 :28 AM EDT documented as of this encounter Plan of Treatment Not on [...] Noted Time PHQ-9 Depression Total Score: 0 06/13/19 23 11:34 AM EST documented as of this encounter Care Teams Cycle Director Relationship Specialty Start Date End Date Name, MD Rivera [address] [place] [address] PCP - General Family Medicine 11/01/15 Puia, Taylor, PharmD [address] [place] [address] Pharmacist Internal Medicine 08/01/21 documented as of this encounter
--- OUTSIDE RECORDS SUMMARY | 2024-10-06 08:27 | XMS_ITS | Clinical Summary ---
Author Organization [employer] Address [address] [facility] [address] [place] [address] Care Team Providers Care Bulking Machine Operator Name Role Phone Name, Rivera HURT Primary Care Provider [phone] Taylor Shipley PharmD Unavailable [phone] Allergies Active Allergy Reactions Criticality Noted Date Comments Ibuprofen 09/08/2015 Other reaction(s): Unknown Medications amLODIPine (Norvasc) 2.5 MG tabletIndicatio ns:Essential hypertension Take 1 tablet by mouth 1 (one) time each day. 90 tablet 3 01/08/20 24 Active aspirin 81 MG EC tabletIndicatio ns:Type 2 diabetes mellitus without complication, without long-term current use of insulin ([facility]) Take 1 tablet (81 mg) by mouth Once per day. 90 tablet 3 01/08/20 24 025 Active atorvastatin (Lipitor) 20 MG tabletIndicatio ns:Type 2 diabetes mellitus without complication, without long-term current use of insulin ([facility]) Take 1 tablet by mouth 1 (one) time each day. 90 tablet 3 01/08/20 24 Active glucose blood (FREESTYLE LITE) test stripIndication s:Type 2 diabetes mellitus without complication, without long-term current use of insulin ([facility]) Test blood sugar twice daily 100 each 01/08/20 24 Active TRUEplus Lancets 33G miscIndications :Type 2 diabetes mellitus without complication, without long-term current use of insulin ([facility]) Use to test blood sugar twice daily 100 each 01/08/20 24 Active acetaminophen (Tylenol) 500 MG tablet Take 2 tablets (1,000 mg) by mouth every 6 (six) hours if needed for moderate pain or fever for up to 25 doses. 30 tablet 02/25/20 24 Active Blood Glucose Monitoring Suppl (FreeStyle Lite) deviceIndicatio ns:Type 2 diabetes mellitus without complication, without long-term current use of insulin (CMS/HCC) Inject under the skin 2 times daily. 1 each 06/01/20 24 Active empagliflozin-m etFORMIN ER (Synjardy XR) 12.5-1000 MG 24 hr tabletIndicatio ns:Type 2 diabetes mellitus without complication, without long-term current use of insulin (CMS/HCC) Take 1 tablet by mouth with breakfast and with evening meal. 180 tablet 3 09/22/19 25 Active empagliflozin-m etFORMIN ER (Synjardy XR) 12.5-1000 MG 24 hr tabletIndicatio ns:Type 2 diabetes mellitus without complication, without long-term current use of insulin (CMS/HCC) Take 1 tablet by mouth with breakfast and with evening meal. 180 tablet 3 01/08/20 24 025 Discontinued(Re order (will not trigger notification to Pharmacy)) Active Problems Problem Noted Date Diagnosed Date Postmenopausal bleeding 03/31/2024 Assessment & Plan (03/31/2024 10:28 AM EDT): Pt is not currently experiencing postmenopausal bleeding However d/t incomplete workup for postmenopausal bleeding and endometrial thickening [address] new referral for [facility] to complete pelvic u/s to evaluate endometrium If pt experiences any interim bleeding or any new conditions, will RTC Vulvar rash 03/31/2024 Assessment & Plan (03/31/2024 10:29 AM EDT): Performed vaginitis panel today and will f/u with results and treatment as needed Type 2 diabetes mellitus 05/18/2022 Gallstone 08/22/2017 Overview (05/28/2023): US 2018: IMPRESSION: Liver of diffuse increased echogenicity. This is nonspecific, but consistent with diffuse fatty infiltration. Cholelithiasis without evidence of cholecystitis. REPORT SIGNED IN OTHER VENDOR SYSTEM 08/06/2017 Steatosis of liver 08/22/2017 Essential hypertension 07/15/2017 Vertigo 03/16/2016 Resolved Problems Problem Noted Date Diagnosed Date Resolved Date Cervical cancer screening 03/31/2024 Assessment & Plan (03/31/2024 10:25 AM EDT): If pap normal today, repeat pap and HPV cotest in 5 years LFT elevation 07/23/2017 09/11/2023 Encounters Date Type Department Care Team Description 09/21/2024 10:45 AM EDT Office Visit [facility] [address] [place] [address] Name, MD Rivera Type 2 diabetes mellitus without complication, without long-term current use of insulin (CMS/HCC) (Primary Dx); Essential hypertension; Need for hepatitis C screening test 09/21/2024 Travel 09/17/[address] [facility] [address] [place] [address] Allison Kim MA chartprep 08/21/2024 Population Health Risk Score [facility] () Department [address] [place] [id number] Provider, Population Health Generic from Last 3 Months Immunizations Name Administration Dates Next Due Hep B, adult 04/04/2022,09/27/2017,08/22/2017 Pfizer Covid-19 Vaccine 12+ 10/04/2023(D eferred: Patient Refused - Reports ALEJANDRA w/ Moderna dose #1, hesitatant to recieve additional COVID vaccine doses) Pneumococcal Conjugate PCV 20 04/11/2022 Tdap 03/16/2016 Zoster, Recombinant 11/01/2021,08/17/2021 Family History Medical History Relation Name Comments Hypertension Father Stroke Maternal Grandfather Diabetes Mother Uterine cancer Mother's Sister Relation Name Status Comments Father Maternal Grandfather Mother Mother's Sister Social History Tobacco Use Types Packs/Day Years Used Date Smoking Tobacco: Never Passive Smoke Exposure: Never Smokeless Tobacco: Never Tobacco Cessation:Counseling Given: Not Answered Alcohol Use Standard Drinks/Week Comments Never 0 (1 standard drink = 0.6 oz pur e alcohol) Alcohol Answer Date Recorded Frequency of Alcohol Consumption Not on file 12/25/2023 Average Number of Drinks Not on file 024 Frequency of Binge Drinking Not on file 12/08 Score 0 12/25/2023 Depression Answer Date Recorded Patient Health Questionnaire-9 Score 0 09/21/2024 Patient Health Questionnaire-9 Score 0 09/21/2024 Last PHQ-9: Questionnaire Data Not on file 0 09/21/2024 Housing Stability Answer Date Recorded What is [...] Date Recorded Patient Health Questionnaire-2 Score 0 09/21/2024 Internet Access Answer Date Recorded Internet Access Q1 No 02/10/2024 Internet Access Q2 I do not want or need it 07/2023 Comments No Sex and Gender Information Value Date Recorded Sex Assigned at Female 04/09/2022 10:28 AM EDT Legal Sex Female 10:28 AM EDT Gender Identity Female 04/09/2022 10:28 AM EDT Sexual Orientation Straight 04/09/2022 10 :28 AM EDT Last Filed Vital Signs Vital Sign Reading Time Taken Comments Blood Pressure 141/79 09/21/2024 10:48 AM EDT Pulse 98 09/21/2024 10:37 AM EDT Temperature 36.8 ??C (98.2 ??F) 09/21/2024 10:37 AM E DT Respiratory Rate 16 09/21/2024 10:37 AM EDT Oxygen Saturation 97% 09/21/2024 10:37 AM EDT Inhaled Oxygen Concentration - - Weight 77.3 kg (170 lb 6 oz) 09/21/2024 10:37 AM EDT Height 160.6 cm (5' 3.24 ) 09/21/2024 10:37 AM E DT Body Mass Index 29.95 09/21/2024 10:37 AM EDT Plan of Treatment Health Maintenance Due Date Last Done Comments CT Colonography 1971 Colonoscopy 1971 FIT 1971 HIV Screening 1970 Sigmoidoscopy 1971 Hepatitis C Screening 1989 Hepatitis A Vaccines (1 of 2 - Risk 2-dose series) 1990 FOBT 11/10/2022 11/10/2021 COVID-19 Vaccine ( season) 2024 08/26/2020 Influenza Vaccine (#1) 2024 Diabetes: Urine Protein Screening 09/26/2024 09/27/2023, 02/13/2023, 06/20/2022, Additional history exists Lipid Panel 09/26/2024 09/27/2023, 06/10, 11/08/2021, Additional history exists Colorectal Cancer Screening 11/10/2024 FIT DNA/Cologuard 11/10/2024 11/10/2021 Diabetes: Hemoglobin A1C 12/21/2024 025, 05/14/2024, 12/25/2023, Additional history exists Alcohol/Substance Use Screening 12/24/2024 12/25/2023 SDOH Screening 12/24/2024 12/25/2023 Mammogram 01/01/2025 01/02/2024, 07/0 11/2022, 12/13/2022, Additional history exists Eye Exam 03/27/2025 03/27/2024, 03/10, 03/27/2024, Additional history exists Depression Screening 09/21/2025 09/21/2024, 09/22/19 Diabetes: Foot Exam 09/21/2025 09/21/2024, 09/21/2024, 09/21/2024, Additional history exists Tobacco Screening 09/21/2025 09/21/2024 DTaP/Tdap/Td Vaccines (2 - Td or Tdap) 03/16/2026 03/16/2016 Cervical Cancer Screening 03/31/2029 HPV/Cotest 03/31/2029 03/31/2024, 03/11/2019 Pap Smear 03/31/2029 03/31/2024, 03/11/2019 RSV Patients and Patients Aged 60 years or older (1 - 1-dose 75+ series) 2046 Zoster Vaccines Completed 11/01/2021, 08/17/2021 Hepatitis B Vaccines Completed 04/04/2022, 09/27/2017, 08/22/2017 Pneumococcal Vaccine: 50+ Years Completed 04/11/2022 HIB Vaccines Aged Out No longer eligi ble based on patient's age to complete this topic HPV Vaccines Aged Out No longer eligi ble based on patient's age to complete this topic IPV Vaccines Aged Out No longer eligi ble based on patient's age to complete this topic Meningococcal Vaccine Aged Out No priya luigi eligible based on patient's age to complete this topic RSV under 20 months Aged Out No longe r eligible based on patient's age to complete this topic Rotavirus Vaccines Aged Out No longer eligible based on patient's age to complete this topic Goals Goal Patient Goal Type Associated Problems Recent Progress Patient-Stated? Author Blood Pressure < 140/90 Blood Pressure 141/79(2024 10:48 AM EDT) No Taylor Shipley, Kings Hemoglobin A1c < 7 Result Component 7(09/21/2024 10:42 AM EDT) No Taylor Shipley PharmD Procedures Procedure Name Priority Date/Time Associated Diagnosis Comments POCT GLYCATED HEMOGLOBIN, TOTAL Routine 09/21/2024 10:42 AM EDT Type 2 diabetes mellitus without complication, without long-term current use of insulin ([facility]) POCT GLUCOSE Routine 09/21/2024 10:42 AM EDT Type 2 diabetes mellitus without complication, without long-term current use of insulin ([facility]) THINPREP IMAGING PAP AND HPV MRNA E6/E7 Routine 03/31/2024 9:44 AM EDT BI MAMMOGRAM SCREENING TOMOSYNTHESIS BILATERAL Routine 01/02/2024 3:45 PM EDT ALBUMIN, RANDOM URINE W/CREATININE Routine 09/27/2023 8:26 AM EDT Type 2 diabetes mellitus without complication, without long-term current use of insulin ([facility]) Essential hypertension LIPID PANEL, STANDARD Routine 09/27/2023 8:26 AM EDT Type 2 diabetes mellitus without complication, without long-term current use of insulin ([facility]) Essential hypertension HM FIT DNA/COLOGUARD CANCER SCREENING Routine 11/10/2021 from Last 3 Months or Most Recently Relevant to Health Maintenance Results * (ABNORMAL) POCT HGB A1C (09/21/2024 10:42 AM EDT) Pathologist [facility] Hemoglobin A1C 7.0(A) 4.0 - 6.0 % QC Media Lot # [id number] Lot# Expiration Date Blood 09/21/2024 10:4 2 AM EDT us Rivera Nicole MD POINT OF CARE TEST ENTER/EDIT OR DERABLES Final Result * POCT Glucose (09/21/2024 10:42 AM EDT) [facility] Glucose Blood, POC 142 60 - 200 mg/dL QC Media Lot # [id number] Lot# Expiration Date Blood Capillary blood specimen / Unknown 09/21/2024 10:42 AM EDT us Rivera Nicole MD POINT OF CARE TEST ENTER/EDIT OR DERABLES Final Result * ThinPrep Imaging Pap and HPV mRNA E6/E7 (03/31/2024 9:44 AM EDT) Pathologist [facility] HPV nRNA E6/E7 Not Detected Not Detected [facility] Comment:Methodology: Transcr iption-Mediated AmplificationThis assay detects E6/E7 viral messenger RNA (mRNA) from 14high-risk HPV types (16,18,31,33,35,39,45,51,52,56,58,59,66,68).Cervical sources are required for HPV testing.If a vaginal source from a patient who has had atotal hysterectomy with removal of cervix wassubmitted, please contact the testing laboratoryfor alternative testing options.For additional information, please refer [email or web address]/faq/WTK581t8(This link if provided for information/educational purposes only.)THIS TEST WAS PERFORMED AT:[facility] [address] [id number] ADAIR MD SOURCE: SEE NOTE [facility] Comment:Cervix Report Status: [facility] Clinical Information: SEE NOTE [facility] Comment:None given LMP: SEE NOTE [facility] Comment:NONE GIVEN Prev. PAP: SEE NOTE [facility] Comment:NONE GIVEN Prev. BX: SEE NOTE [facility] Comment:NONE GIVEN Statement Of Adequacy: SEE NOTE [facility] Comment:SATISFACTORY FOR SHERIF LUATION General Categorization: [facility] Interpretation/Result: SEE NOTE [facility] Comment:Cytology Results: Ne gative for intraepitheliallesion or malignancy.Atrophic pattern; predominantly parabasal cells Cytology Comment SEE NOTE [facility] Comment:This Pap test has be en evaluated with computerassisted technology. Curtain Cleaner: SEE NOTE [facility] Comment:GSG, CT(ASCP)CT scre ening location: [address] [address] Review Curtain Cleaner: [facility] Pathologist [facility] PAP Infection [facility] See Note SEE [facility] Comment:EXPLANATORY NOTE:The Pap is a screening test for cervical cancer. It isnot a diagnostic test and is subject to false negativeand false positive results. It is most reliable when asatisfactory sample, regularly obtained, is submittedwith relevant clinical findings and history, and whenthe Pap result is evaluated along with historic andcurrent clinical information. 03/31/2024 9:44 AM EDT 03/31/2024 6:12 PM EDT Narrative [facility] - 04/03/2024 11:24 AM EDT SEE SCANNED RESULTS IN EMRCERVIX us Hyun Blum CNM LAB PATHOLOGY ORDERABLES Final Result Performing Organization Address [facility]/State/ZIP Co de Phone Number [facility] [address] [place] [address] [phone] * BI Mammogram Screening Tomosynthesis Bilateral (01/02/2024 3:45 PM EDT) Anatomical Region Laterality Modality Breast Bilateral Mammography 01/02/2024 3:45 PM EDT Narrative 01/22/2024 10:49 PM EDT ? [facility] ? [address] ?[place] [address] ? Mammography Report ? Signed ? Patient: Kayla Mead ?MR#: [id number] ?? [id number] ? : 1970 ?Acct:[id number] ? Age/Sex: 53 / F ?ADM Date: 01/01/ ? Loc: HO.MAMMO ? Attending Dr: Rivera Name MD ? Ordering Physician: Name,Rivera MD ?Results: 1Negative ? Date of Service: 01/01/ ?Follow Up: 1 Year From Orig ?? inal Mammogram ? Procedure(s): MM tomosynthesis screening BI ?? Accession Number(s): [id number] ? cc: Name,Rivera HURT ? EXAMINATION: ?? MM SCREENING DIGITAL BREAST TOMOSYNTHESIS, BILATERAL ? CLINICAL INFORMATION: ? Screening. Asymptomatic. ? COMPARISON: ?? Mammography: This study is compared with prior exams dating back to ?? 2019. ? TECHNIQUE: ?? Digital breast tomosynthesis is performed in both the craniocaudal and ?? mediolateral oblique views along with computer-aided detection (CAD). ?? Synthesized 2D images are generated from the tomosynthesis. ? FINDINGS: ?? The breasts are almost entirely fatty (ACR BI-RADS breast composition ?? Category a). ? There are no significant masses, abnormal calcifications, or other ?? abnormalities. ? MM/MM tomosynthesis screening BI ?? IMPRESSION: ?? No mammographic evidence of malignancy. ? ASSESSMENT: ? BI-RADS BI-RADS 1 - Negative ? RECOMMENDATION: ?? Routine annual mammography screening. ? 1 year F/U ? This examination should not preclude the clinical evaluation of a ?? suspicious palpable abnormality. ? This patient's information was entered into a reminder system with a ?? target due date for their next mammogram. ? Dictated By: ?Rafaela Wharton MD ? Signed By: ?<Electronically signed by Rafaela Wharton MD in OV> ? 01/22/245 ? DD/ 44 ? TD/TT: ? Reference Investigator: ? Procedure Note Jeanette, Hubert - 01/22/2024 [facility] [address] [place] [address] [place] [address] Mammography Report Signed Patient: Kayla Mead MMR#: [id number] : 1970Acct:[id number] Age/Sex: 53 / FADM Date: 01/02/24 Loc: HO.MAMMO Attending DrMaria Del Rosario Nicole MD Ordering Physician: Rivera Nicoleesults: 1Negative Date of Service: 01/02/24Follow Up: 1 Year From Orig inal Mammogram Procedure(s): MM tomosynthesis screening BI Accession Number(s): [id number] cc: Rivera Nicole MD EXAMINATION: MM SCREENING DIGITAL BREAST TOMOSYNTHESIS, BILATERAL CLINICAL INFORMATION: Screening. Asymptomatic. COMPARISON: Mammography: This study is compared with prior exams dating back to 2019. TECHNIQUE: Digital breast tomosynthesis is performed in both the craniocaudal and mediolateral oblique views along with computer-aided detection (CAD). Synthesized 2D images are generated from the tomosynthesis. FINDINGS: The breasts are almost entirely fatty (ACR BI-RADS breast composition Category a). There are no significant masses, abnormal calcifications, or other abnormalities. MM/MM tomosynthesis screening BI IMPRESSION: No mammographic evidence of malignancy. ASSESSMENT: BI-RADS BI-RADS 1 - Negative RECOMMENDATION: Routine annual mammography screening. 1 year F/U This examination should not preclude the clinical evaluation of a suspicious palpable abnormality. This patient's information was entered into a reminder system with a target due date for their next mammogram. Dictated By: Rafaela Wharton MD Signed By: <Electronically signed by Rafaela Wharton MD in OV> 01/22/24 2245 DD/ 1545 TD/TT: Reference Investigator: Rivera Nicole MD IMG BI PROCEDURES Final Result * Albumin, Random Urine W/Creatinine (09/27/2023 8:26 AM EDT) Creatinine, Urine 71.48 mg/dL [facility] Microalbumin Urine 12.0 mg/L [facility] Microalbum Creatinine Ratio Ur 16.7 <30 ug/mg cr [facility] Comment:Albumin/Creatinine R atio Reference Ranges: Normal: < 30 ug/mg creatinine Microalbuminuria: 30 - 300 ug/mg creatinineClinical Albuminuria: > 300 ug/mg creatinine Urine (Urine, Random) 09/27/2023 8:26 AM EDT 09/27/2023 11:18 AM EDT us Rivera Nicole MD LAB URINE ORDERABLES Final Resul t [facility] [address] [place] [address] [phone] * Lipid Panel, Standard (09/27/2023 8:26 AM EDT) Triglycerides 70 <150 mg/dL [facility] Comment:Desirable Triglyceri de: less than 150 mg/dLBorderline High Triglyceride 150-199 mg/dLHigh Triglyceride: 200-499 mg/dLVery High Triglyceride: greater than or equal to 5OO mg/dL Cholesterol 119 <200 mg/dL [facility] Comment:Desirable Cholestero l: less than 200 mg/dLBorderline High Cholesterol: 200-239 mg/dLHigh Cholesterol: greater than 239 mg/dL LDL Cholesterol Calculated 61 <100 mg/dL [facility] Comment:Desirable LDL: less than 100 mg/dLNear Optimal/Above Optimal LDL: 110- 129 mg/dLBorderline High LDL: 130-159 mg/dLHigh LDL: 160-189 mg/dLVery High LDL: greater than or equal to 190 mg/dL HDL Cholesterol 44 >40 mg/dL [facility] Comment:Desirable HDL: great er than 40 mg/dL Note: This HDL assay may give artificially low results in patients with liver disease. Blood Venous blood specimen / Unknown 09/27/2023 8:26 AM EDT 09/27/2023 11:35 AM EDT us Rivera Nicole MD LAB BLOOD ORDERABLES Final Resul t [facility] [address] [place] [address] [phone] * FIT DNA/Cologuard Cancer Screening (11/10/2021) Cologuard Cancer Screen Negative Stool us Rivera Nicole MD HEALTH MAINTENANCE Final Result from Last 3 Months or Most Recently Relevant to Health Maintenance Insurance [facility] STANDARD Care Teams Bulking Machine Operator Relationship Specialty Start Date End Date Name, MD Rivera [address] [place] [address] PCP - General Family Medicine 11/01/15 Taylor Shipley, BrittanyD [address] [place] [address] Pharmacist Internal Medicine 08/01/21
[2024-10-06 12:00] LABS: Alanine Aminotransferase 23 U/L (0-31); Alkaline Phosphatase 150 U/L (39-117); Anion Gap 9 (12-20); Aspartate Amino Transferase 32 U/L (5-31); Bilirubin Total 0.2 mg/dL (0.0-1.0); Blood Urea Nitrogen 12 mg/dL (9-16); Calcium 8.6 mg/dL (8.4-10.2); Carbon Dioxide 27 mmol/L (22-29); Chloride 106 mmol/L (96-108); Cholesterol 136 mg/dL (<200); Estimated Glomerular Filt Rate > 60; Glucose Random 131 mg/dL (60-115); HDL Cholesterol 49 mg/dL (>40); LDL Cholesterol Calculated 69 mg/dL (<100); Potassium 4.4 mmol/L (3.3-5.1); Sodium 138 mmol/L (135-145); Total Protein 7.9 g/dL (6.5-8.0); Triglycerides 93 mg/dL (<150)
[2024-10-06 12:11] LABS: ~HepC Num1 0.11 S/CO (0.00-0.79); ~Hepatitis C Antibody Nonreactive (Nonreactive)
[2024-10-06 12:13] LABS: Creatinine Urine 69.36 mg/dL; Microalbum/Creatinine Ratio Ur 15.8 ug/mg cr (<30)
== END 2024-10-06 08:13 | disposition home or self-care (01) ==
LOC: HO.HHCL 08:12
PROVIDERS: Visit Provider Internal Medicine Geriatric Medicine
DX: E11.9 Type 2 diabetes mellitus without complications (principal); I10 Essential (primary) hypertension; Z11.59 Encounter for screening for other viral diseases
CPT/HCPCS: 36415; 80053; 80061; 82043; 82570; 86803

== ENCOUNTER 2025-01-14 14:32 | Outpatient (REF) | payer MEDICAID, SELFPAY ==
--- OUTSIDE RECORDS SUMMARY | 2025-01-14 14:35 | XMS_ITS | Encounter Summary ---
Author Organization [employer] Address [address] [facility] [address] [place] [address] Care Team Providers Care Cargo Bracer Name Role Phone NameRivera MD Primary Care Provider [phone] Taylor Shipley PharmD Unavailable [phone] Reason for Visit * Reason Onset Date Comments Appointment Request 03/09/2024 Encounter Details Date Type Department Care Team ([facility] st Contact Info) Description 03/09/2024 Telephone [facility] [address] [place], [place] [phone] Name, MD Rivera [address] [place] [address] Appointment Request Social History Tobacco Use Types [...] documented in this encounter Plan of Treatment Upcoming Encounters Date Type Department Care Team (Late st Contact Info) Description 02/11/2025 9:45 AM EDT Office Visit [facility] [address] [place] [address] Name, MD Rivera [address] [place] [address] documented as of this encounter Goals Goal Patient Goal Type Associated Problems Recent Progress Patient-Stated? Author Blood Pressure < 140/90 Blood Pressure 141/79(2024 10:48 AM EDT) No Taylor Shipley, PharmD Hemoglobin A1c < 7 Result Component 7(09/21/2024 10:42 AM EDT) No Taylor Shipley, PharmD documented as of this encounter Visit Diagnoses Not on filedocumented in this encounter Additional Health Concerns Assessment Noted Time PHQ-9 Depression Total Score: 0 09/11/19 24 3:39 PM EDT documented as of this encounter Care Teams Cargo Bracer Relationship Specialty Start Date End Date Name, MD Rivera [address] [place] [address] PCP - General Family Medicine 11/01/15 Taylor Shipley, PharmD [address] [place] [address] Pharmacist Internal Medicine 08/01/21 documented as of this encounter
== END 2025-01-14 14:33 | disposition home or self-care (01) ==
LOC: HO.MAMMO 14:32
PROVIDERS: PCP Internal Medicine Geriatric Medicine; Visit Provider Internal Medicine Geriatric Medicine
DX: Z12.31 Encounter for screening mammogram for malignant neoplasm of breast (principal)
CPT/HCPCS: 77063; 77067

== ENCOUNTER → 2025-01-14 15:00 | Outpatient (BNV) | payer MEDICAID, SELFPAY | PROVIDERS: PCP Internal Medicine Geriatric Medicine; Visit Provider Radiology Body Imaging | DX: Z12.31 Encounter for screening mammogram for malignant neoplasm of breast (principal) | CPT/HCPCS: 77063; 77067 ==

== ENCOUNTER 2025-04-01 18:26 | Outpatient (REF) | payer MEDICAID, SELFPAY ==
--- OUTSIDE RECORDS SUMMARY | 2025-04-01 15:15 | XMS_ITS | Encounter Summary ---
Author Organization [employer] Address [address] [place] [address] 7t [place] [address] Care Team Providers Care Senior Cytotechnologist Name Role Phone Name, Rivera HURT Primary Care Provider Taylor Shipley PharmD Unavailable [phone] Reason for Visit * Reason Comments pelvic Encounter Details Date Type Department Care Team ([facility] st Contact Info) Description 04/01/2025 3:15 PM EDT Office Visit [facility] MEDICINE [address] [place] [address] Hyun Blum CNM [address] [place] [address] Vulvar irritation (Primary Dx) Social History Tobacco Use Types Packs/Day Years [...] housing situation today? I have beto rhodes 02/11/[address] you li ve. Do you have problems with any of the following? Pests such as bugs, ants, or mice;Inadequate heat 02/11/2025 Food Insecurity Answer Date Recorded Within the past 12 months, y ou worried that your food would run out before you got money to buy more: Never True 02/11/2025 Within the past 12 months,th e food you bought just didn't last and you didn't have enough money to get more: Never True 09/2024 Transportation Answer Date Recorded In the past 12 months, has l ack of transportation kept you from medical appts, meetings, work or from getting things needed for daily living? No 02/11/2025 Utilities Answer Date Recorded In the past 12 months, has t he electric, gas, oil or water company threatened to shut off services in your home? No 02/11/2025 Depression Answer Date Recorded Patient Health Questionnaire-2 Score 0 09/21/2024 Internet Access Answer Date Recorded Internet Access Q1 Yes 02/11/2025 Internet Access Q2 I do not want or need it 09/2024 Comments No Sex and Gender Information Value Date Recorded Sex Assigned at Female 04/09/2022 10:28 AM EDT Legal Sex Female 10:28 AM EDT Gender Identity Female 04/09/2022 10:28 AM EDT Sexual Orientation Straight 04/09/2022 10 :28 AM EDT documented as of this encounter Last Filed Vital Signs Vital Sign Reading Time Taken Comments Blood Pressure 130/70 04/01/2025 3:07 PM EDT Pulse 76 04/01/2025 3:07 PM EDT Temperature 36.1 C (97 F) 04/01/2025 3:07 PM EDT Respiratory Rate 14 04/01/2025 3:07 PM EDT Oxygen Saturation 98% 04/01/2025 3:07 PM EDT Inhaled Oxygen Concentration - - Weight 75.7 kg (166 lb 12.8 oz) 04/01/2025 3:07 PM EDT Height - - Body Mass Index 29.32 02/11/2025 9:52 AM EDT documented in this encounter Progress Notes * Hyun Blum CNM - 04/01/2025 3:15 PM EDT Subjective Patient ID: Kayla Apodaca is a 54 y.o. 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 Remote history of postmenopausal bleeding with thickened EM, never had evaluation so repeat ultrasound ordered last year showing thin EM (2mm), no worrisome findings. No recurrence of bleeding. Mcfp AMAB partner, no safety concerns. History of c krusei/glabrata. Notes some vulvar irritation recently. It sounds like she was using OTC steroid cream for this. Mammogram BIRADS 1, cat b 01/2025. Would like breast and pelvic exam today. No vasomotor symptoms. No personal fracture. Review of Systems Genitourinary: Negative for dyspareunia, dysuria, frequency, genital sores, hematuria, menstrual problem, pelvic pain, urgency, vaginal bleeding, vaginal discharge and vaginal pain. No abnormal pap, no abnormal bleeding, no breast pain, no breast mass, no nipple discharge Skin: Positive for rash. Objective BP 130/70 (BP Location: Left arm, Patient Position: Sitting, BP Cuff Size: Adult long) Pulse 76 Temp 97 ??F (36.1 ??C) (Oral) Resp 14 Wt 166 lb 12.8 oz (75.7 kg) SpO2 98% BMI 29.32 kg/m?? Physical Exam Grinding Operator present: declines oracle soa architect. Constitutional: Appearance: Normal appearance. Chest: Breasts: Right: Normal. No swelling, bleeding, inverted nipple, mass, nipple discharge, skin change or tenderness. Left: Normal. No swelling, bleeding, inverted nipple, mass, nipple discharge, skin change or tenderness. Genitourinary: Labia: Right: Rash present. No tenderness, lesion or injury. Left: Rash present. No tenderness, lesion or injury. Vagina: Normal. No signs of injury and foreign body. No vaginal discharge, erythema, tenderness, bleeding or lesions. Cervix: No cervical motion tenderness, discharge, friability, lesion, erythema, cervical bleeding or eversion. Uterus: Normal. Not enlarged and not tender. Adnexa: Right adnexa normal and left adnexa normal. Right: No mass, tenderness or fullness. Left: No mass, tenderness or fullness. Comments: Ovaries non palpable bilaterally Well demarcated pink rash with some excoriations inner aspect of labia majora extending to clitoralhood Lymphadenopathy: Upper Body: Right upper body: No supraclavicular or axillary adenopathy. Left upper body: No supraclavicular or axillary adenopathy. Neurological: Mental Status: She is alert. Psychiatric: Mood and Affect: Mood normal. Behavior: Behavior normal. Assessment/Plan Diagnoses and all orders for this visit: Vulvar irritation - Bacterial Vaginosis Panel Will rule out yeast. If negative, will prescribe clobetasol x 1-2wks and reassess. Pap/HPV [id number]. Routine mammography. Report bleeding. BMD at 65, sooner if new risk factors. documented in this encounter Plan of Treatment Upcoming Encounters Date Type Department Care Team (Late st Contact Info) Description 06/23/2025 10:00 AM EST Office Visit [facility] OPTOMETRY [address] [place], [place] [phone] Gurvinder, Marj, OD [address] [place] [address] 06/29/2025 10:45 AM EST Office Visit [facility] MEDICINE [address] [place] [address] Name, MD Rivera [address] [place] [address] Scheduled Orders Name Type Priority Associated Diagnoses Orde r Schedule Bacterial Vaginosis Panel Microbiology Routine Vulvar irritation Ordered: 04/01/2025 documented as of this encounter Goals Goal Patient Goal Type Associated Problems Recent Progress Patient-Stated? Author Blood Pressure < 140/90 Blood Pressure 130/70(2024 3:07 PM EDT) No Puia, Taylor, PharmD Hemoglobin A1c < 7 Result Component 6.8( 9:54 AM EDT) No Puia, Taylor, PharmD documented as of this encounter Visit Diagnoses Diagnosis Vulvar irritation- Primary documented in this encounter Additional Health Concerns Assessment Noted Time PHQ-9 Depression Total Score: 0 09/22/19 25 10:44 AM EDT documented as of this encounter Care Teams Senior Cytotechnologist Relationship Specialty Start Date End Date NameRivera MD [address] [place] [address] PCP - General Family Medicine 11/01/15 Taylor Shipley, Kings [address] [place] [address] Pharmacist Internal Medicine 08/01/21 documented as of this encounter
--- OUTSIDE RECORDS SUMMARY | 2025-04-01 19:44 | XMS_ITS | Encounter Summary ---
Author Organization [employer] Address [address] [facility] 7t [place] [address] Care Team Providers Care Assistant Women'S Tennis Coach Name Role Phone NameRivera MD Primary Care Provider [phone] Taylor Shipley PharmD Unavailable [phone] Reason for Visit * Reason Onset Date Comments Appointment Request 03/09/2024 Encounter Details Date Type Department Care Team ([facility] st Contact Info) Description 03/09/2024 Telephone [facility] MEDICINE [address] [place], [place] [phone] Name, MD Rivera [address] [place] [address] Appointment Request Social History Tobacco Use Types [...] Description 06/23/2025 10:00 AM EST Office Visit [facility] OPTOMETRY [address] [place] [address] Marj Hollins, OD [address] [place] [address] 06/29/2025 10:45 AM EST Office Visit [facility] MEDICINE [address] [place] [address] Name, MD Rivera [address] [place] [address] documented as of this encounter Goals Goal Patient Goal Type Associated Problems Recent Progress Patient-Stated? Author Blood Pressure < 140/90 Blood Pressure 130/70(2024 3:07 PM EDT) No Taylor Shipley, PharmLuciano Hemoglobin A1c < 7 Result Component 6.8( 9:54 AM EDT) No Taylor Shipley PharmD documented as of this encounter Visit Diagnoses Not on filedocumented in this encounter Additional Health Concerns Assessment Noted Time PHQ-9 Depression Total Score: 0 09/11/19 3:39 PM EDT documented as of this encounter Care Teams Assistant Women'S Tennis Coach Relationship Specialty Start Date End Date Name, MD Rivera [address] [place] [address] PCP - General Family Medicine 11/01/15 Taylor Shipley PharmD [address] [place] [address] Pharmacist Internal Medicine 08/01/21 documented as of this encounter
--- OUTSIDE RECORDS SUMMARY | 2025-04-01 19:44 | XMS_ITS | Encounter Summary ---
Author Organization [employer] Address [address] [facility] 7t [place] [address] Care Team Providers Care Title Camera Operator Name Role Phone Name, Rivera HURT Primary Care Provider [phone] Taylor Shipley PharmD Unavailable [phone] Encounter Details Date Type Department Care Team (Late st Contact Info) Description 03/31/2025 Telephone [facility] WALK-IN CENTER [address] [place], [place] [phone] Cindi Felipe [place] Social History Tobacco Use Types Packs/Day Years Used Date Smoking Tobacco: Never Passive Smoke Exposure: Never Smokeless Tobacco: Never Alcohol Use Standard [...] your housing situation today? I have beto sing 02/11/[address] you li [...] encounter Miscellaneous Notes * Telephone Encounter - Cindi Felipe [place] - 03/31/2025 1:10 PM EDT Chart Prep Labs: done Images: done Referrals: not applicable Vaccines due: Covid and Flu Screenings: eye exam Overdue care gaps: Not applicable documented in this encounter Plan of Treatment Upcoming Encounters Date Type Department Care Team (Late st Contact Info) Description 06/23/2025 10:00 AM EST Office Visit [facility] OPTOMETRY [address] [place] [address] Marj Hollins, OD [address] [place] [address] 06/29/2025 10:45 AM EST Office Visit [facility] MEDICINE [address] [place] [address] Name, MD Rivera [address] [place] [address] documented as of this encounter Goals Goal Patient Goal Type Associated Problems Recent Progress Patient-Stated? Author Blood Pressure < 140/90 Blood Pressure 130/70(2024 3:07 PM EDT) No Taylor Shipley, PharmD Hemoglobin A1c < 7 Result Component 6.8( 9:54 AM EDT) No Taylor Shipley, PharmD documented as of this encounter Visit Diagnoses Not on filedocumented in this encounter Additional Health Concerns Assessment Noted Time PHQ-9 Depression Total Score: 0 09/22/19 25 10:44 AM EDT documented as of this encounter Care Teams Title Camera Operator Relationship Specialty Start Date End Date Name, MD Rivera [address] [place] [address] PCP - General Family Medicine 11/01/15 Taylor Shipley, BrittanyD [address] [place] [address] Pharmacist Internal Medicine 08/01/21 documented as of this encounter
--- OUTSIDE RECORDS SUMMARY | 2025-04-01 19:44 | XMS_ITS | Encounter Summary ---
Author Organization [employer] Address [address] [facility] 7t [place] [address] Care Team Providers Care Sustainability Executive Director Name Role Phone Name, Rivera HURT Primary Care Provider [phone] Taylor Shipley PharmD Unavailable [phone] Encounter Details Date Type Department Care Team (Latest Contact Info) Description 04/01/2025 Travel Social History Tobacco Use Types Packs/Day Years [...] as of this encounter Plan of Treatment Upcoming Encounters Date Type Department Care Team (Late st Contact Info) Description 06/23/2025 10:00 AM EST Office Visit [facility] OPTOMETRY [address] [place] [address] Gurvinder, Marj, OD [address] [place] [address] 06/29/2025 10:45 AM EST Office Visit [facility] MEDICINE [address] [place] [address] Rivera Nicole MD [address] [place] [address] documented as of this encounter Goals Goal [...] documented as of this encounter Care Teams Sustainability Executive Director Relationship Specialty Start Date End Date Rivera Nicole MD [address] [place] [address] PCP - General Family Medicine 11/01/15 Taylor Shipley PharmD [address] [place] [address] Pharmacist Internal Medicine 08/01/21 documented as of this encounter
--- OUTSIDE RECORDS SUMMARY | 2025-04-01 19:44 | XMS_ITS | Encounter Summary ---
Author Organization [employer] Address [address] [facility] 7t [place] [address] Care Team Providers Care Environmental Professional Name Role Phone Name, Rivera HURT Primary Care Provider [phone] Taylor Shipley PharmD Unavailable [phone] Encounter Details Date Type Department Care Team ([facility] st Contact Info) Description 03/08/2025 Results Follow-Up [facility] [address] [place], [place] [phone] Name, MD Rivera [address] [place] [address] POCT Glucose, POCT Hgb A1c, Cologuard colon cancer screening Social History Tobacco Use Types Packs/Day Years [...] the past 12 months, has t he [employer], gas, oil or water company threatened to [...] Description 06/23/2025 10:00 AM EST Office Visit [facility] OPTOMETRY [address] [place] [address] Gurvinder, Marj, OD [address] [place] [address] 06/29/2025 10:45 AM EST Office Visit [facility] [address] [place] [address] Name, MD Rivera [address] [place] [address] documented as of this encounter Goals Goal Patient Goal Type Associated Problems Recent Progress Patient-Stated? Author Blood Pressure < 140/90 Blood Pressure 130/70(2024 3:07 PM EDT) No Puia, Taylor, PharmD Hemoglobin A1c < 7 Result Component 6.8(09/04/202 5 9:54 AM EDT) No Puia, Taylor, PharmD documented as of this encounter Visit Diagnoses Not on filedocumented in this encounter Additional Health Concerns Assessment Noted Time PHQ-9 Depression Total Score: 0 09/22/19 25 10:44 AM EDT documented as of this encounter Care Teams Environmental Professional Relationship Specialty Start Date End Date Name, MD Rivera [address] [place] [address] PCP - General Family Medicine 11/01/15 Taylor Shipley, PharmD [address] [place] [address] Pharmacist Internal Medicine 08/01/21 documented as of this encounter
--- OUTSIDE RECORDS SUMMARY | 2025-04-01 19:44 | XMS_ITS | Encounter Summary ---
Author Organization [employer] Address [address] [facility] 7t [place] [address] Care Team Providers Care Belt Cleaner Name Role Phone Name, Rivera HURT Primary Care Provider [phone] Taylor Shipley PharmD Unavailable [phone] Reason for Visit * Reason Comments Med Refill Encounter Details Date Type Department Care Team ([facility] st Contact Info) Description 04/01/2023 Refill [facility] MEDICINE [address] [place], [place] [phone] Name, MD Rivera [address] [place] [address] Social History Tobacco Use Types Packs/Day Years Used Date Smoking Tobacco: Never Smokeless Tobacco: Never Alcohol Use Standard Drinks/Week Comments Never 0 (1 standard drink = 0.6 oz pur e alcohol) Depression Answer Date Recorded Patient Health Questionnaire-9 Score 0 06/13/2022 Housing Stability Answer Date Recorded What is your housing situation today? I have beto rhodes 04/01/[address] you li [...] Description 06/23/2025 10:00 AM EST Office Visit [facility] OPTOMETRY [address] [place], [place] [phone] Gurvinder, Marj, OD [address] [place] [address] 06/29/2025 10:45 AM EST Office Visit [facility] MEDICINE [address] [place] [address] Name, MD Rivera [address] [place] [address] documented as of this encounter Goals Goal [...] Time PHQ-9 Depression Total Score: 0 06/13/19 11:34 AM EST documented as of this encounter Care Teams Belt Cleaner Relationship Specialty Start Date End Date Name, MD Rivera [address] [place] [address] PCP - General Family Medicine 11/01/15 Puia, Taylor, PharmD [address] [place] [address] Pharmacist Internal Medicine 08/01/21 documented as of this encounter
--- OUTSIDE RECORDS SUMMARY | 2025-04-01 19:44 | XMS_ITS | Encounter Summary ---
Author Organization [employer] Address [address] [facility] [address]t [place] [address] Care Team Providers Care Parts Facilitator Name Role Phone Name, Rivera HURT Primary Care Provider [phone] Taylor Shipley PharmD Unavailable [phone] Reason for Visit * Reason Onset Date Comments dec recalls 03/31/2025 Encounter Details Date Type Department Care Team ([facility] st Contact Info) Description 03/31/2025 Telephone [facility] MEDICINE [address] [place], [place] [phone] [place] dec [place] Social History Tobacco Use Types Packs/Day Years [...] encounter Miscellaneous Notes * Telephone Encounter - Reji Wilkes [place] - 03/31/2025 3:00 PM EDT Telephone call to patient to schedule the following recall: Visit type: Follow up Appointment notes: DM Patient agree to appointment on 06/29/25 at 10;45 AM with Name. documented in this encounter Plan of Treatment Upcoming Encounters Date Type Department Care Team (Late st Contact Info) Description 06/23/2025 10:00 AM EST Office Visit [facility] OPTOMETRY [address] [place] [address] Marj Hollins, OD [address] [place] [address] 06/29/2025 10:45 AM EST Office Visit [facility] MEDICINE [address] [place] [address] Name, MD Rivera [address] [place] [address] documented as of this encounter Goals Goal [...] documented as of this encounter Care Teams Parts Facilitator Relationship Specialty Start Date End Date Name, MD Rivera [address] [place] [address] PCP - General Family Medicine 11/01/15 Taylor Shipley PharmD [address] [place] [address] Pharmacist Internal Medicine 08/01/21 documented as of this encounter
--- OUTSIDE RECORDS SUMMARY | 2025-04-01 19:45 | XMS_ITS | Clinical Summary ---
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 30 tablet 02/25/20 24 Active Blood Glucose Monitoring Suppl (FreeStyle Lite) deviceIndication s:Type 2 diabetes mellitus without complication, without long-term current use of insulin ([facility]) Inject under the skin 2 times daily. 1 each 06/01/20 24 Active empagliflozin-me tFORMIN ER (Synjardy XR) 12.5-1000 MG 24 hr tabletIndication s:Type 2 diabetes mellitus without complication, without long-term current use of insulin (FORM[facility]) Take 1 tablet by mouth with breakfast and with evening meal. 180 tablet 3 09/22/19 25 Active glucose blood (FREESTYLE LITE) test stripIndications :Type 2 diabetes mellitus without complication, without long-term current use of insulin ([facility]) USE DIRECTED TO TEST BLOOD SUGAR TWICE DAILY 100 strip 11 01/28/20 25 Active amLODIPine (Norvasc) 2.5 MG tabletIndication s:Essential hypertension TAKE 1 TABLET BY MOUTH EVERY DAY 90 tablet 3 01/28/20 25 Active Aspirin Low Dose 81 MG EC tabletIndication s:Type 2 diabetes mellitus without complication, without long-term current use of insulin ([facility]) TAKE 1 TABLET BY MOUTH EVERY DAY 90 tablet 3 03/10/20 25 Active TRUEplus Lancets 33G miscIndications: Type 2 diabetes mellitus without complication, without long-term current use of insulin (HCC) USE DIRECTED TO TEST BLOOD SUGAR TWICE DAILY 100 each 11 03/11/20 25 Active atorvastatin (Lipitor) 20 MG tabletIndication s:Type 2 diabetes mellitus without complication, without long-term current use of insulin (HCC) TAKE 1 TABLET BY MOUTH EVERY DAY 90 tablet 11 03/11/20 25 Active aspirin 81 MG EC tabletIndication s:Type 2 diabetes mellitus without complication, without long-term current use of insulin (HCC) Take 1 tablet (81 mg) by mouth Once per day. 90 tablet 3 01/08/20 24 025 Discontinued atorvastatin (Lipitor) 20 MG tabletIndication s:Type 2 diabetes mellitus without complication, without long-term current use of insulin (HCC) Take 1 tablet by mouth 1 (one) time each day. 90 tablet 3 01/08/20 24 025 Discontinued TRUEplus Lancets 33G miscIndications: Type 2 diabetes mellitus without complication, without long-term current use of insulin (HCC) Use to test blood sugar twice daily 100 each 11 01/08/20 24 025 Discontinued Active Problems Problem Noted Date Diagnosed Date Postmenopausal bleeding 03/31/2024 Assessment & Plan (03/31/2024 10:28 AM EDT): Pt is not currently experiencing postmenopausal bleeding However d/t incomplete workup for postmenopausal bleeding and endometrial thickening [address] new referral for [employer] [place] to complete pelvic u/s to evaluate endometrium [...] Encounters Date Type Department Care Team Description 04/01/2025 3:15 PM EDT Office Visit [facility] [address] [place] [phone] Hyun Blum CNM Vulvar irritation (Primary Dx) 04/01/2025 Travel 03/31/2025 Telephone [facility] [address] [place] [phone] Reji Wilkes MA dec recalls 03/31/2025 Telephone [facility] [address] [place] [phone] Cindi Felipe MA 03/11/2025 Refill [facility] [address] [place] [address] [phone] Rivera Nicole MD Type 2 diabetes mellitus without complication, without long-term current use of insulin (HCC) 03/09/2025 Refill [facility] [address] [place] [address] [phone] Rivera Nicole MD Type 2 diabetes mellitus without complication, without long-term current use of insulin ([facility]/HCC) 03/08/2025 Results Follow-Up [facility] [address] [place] [address] [phone] Rivera Nicole MD POCT Glucose, POCT Hgb A1c, Cologuard colon cancer screening 02/11/2025 9:45 AM EDT Office Visit [facility] [address] [place] [address] [phone] Rivera Nicole MD Type 2 diabetes mellitus without complication, without long-term current use of insulin (CMS/HCC) (Primary Dx); Screening for colon cancer 02/11/2025 Travel 02/10/2025 Telephone [facility] [address] [place] [address] Rivera Nicole MD Chart Prep 01/27/2025 Refill [facility] [address] [place] [address] Rivera Nicole MD Essential hypertension 01/26/2025 Travel 01/26/2025 Refill [facility] [address] [place] [address] Rivera Nicole MD Type 2 diabetes mellitus without complication, without long-term current use of insulin ([facility]); Essential hypertension 01/20/2025 Telephone [facility] [address] [place], [place] [phone] Cindi Felipe MA 01/14/2025 Orders Only [facility] [address] [place], [place] [phone] Rivera Nicole MD from Last 3 Months Immunizations Immunization Administration Dates Next Due Hep B, adult [...] 12.8 oz) 04/01/2025 3:07 PM EDT Height 160.6 cm (5' 3.24 ) 02/11/2025 9:52 AM ED T Body Mass Index 29.32 02/11/2025 9:52 AM EDT Plan of Treatment Upcoming Encounters Date Type Department Care Team (Late st Contact Info) Description 06/23/2025 10:00 AM EST Office Visit [facility] OPTOM[facility] [address] [place] [address] Marj Hollins, OD [address] [place] [address] 06/29/2025 10:45 AM EST Office Visit [facility] [address] [place] [address] Name, MD Rivera [address] [place], [place] [phone] Health Maintenance Due Date Last Done Comments CT Colonography 1970 Colonoscopy 1970 FIT 1970 HIV Screening 1970 Sigmoidoscopy 1970 Hepatitis A Vaccines (1 of 2 - Risk 2-dose series) 1990 COVID-19 Vaccine (2 - season) 2025 08/26/2020 Influenza Vaccine (#1) 2025 Eye Exam 03/27/2025 03/27/2024, 03/10, 03/27/2024, Additional history exists Diabetes: Hemoglobin A1C 08/11/2025 025, 09/21/2024, 05/14/2024, Additional history exists Depression Screening 09/21/2025 09/21/2024, 09/22/19 25 Diabetes: Foot Exam 09/21/2025 09/21/2024, 09/21/2024, 09/21/2024, Additional history exists Disability Screening 09/21/2025 09/21/2024 Diabetes: Urine Protein Screening 10/06/2025 10/06/2024, 09/27/2023, 02/13/2023, Additional history exists Lipid Panel 10/06/2025 10/06/2024, 09/08, 06/20/2022, Additional history exists Mammogram 01/14/2026 01/14/2025, 12/09, 12/13/2022, Additional history exists Alcohol/Substance Use Screening 02/11/2026 02/11/2025 SDOH Screening 02/11/2026 02/11/2025 FOBT 03/01/2026 03/01/2025, 06/0 08/2021, 11/09/2021 DTaP/Tdap/Td Vaccines (2 - Td or Tdap) 03/16/2026 03/16/2016 Tobacco Screening 04/01/2026 04/01/2025 Colorectal Cancer Screening 03/01/2028 FIT DNA/Cologuard 03/01/2028 03/01/2025, , 11/09/2021 Cervical Cancer Screening 03/31/2029 HPV/Cotest 03/31/2029 03/31/2024, 03/11/2019 Pap Smear 03/31/2029 03/31/2024, 03/11/2019 RSV Patients and Patients Aged 60 years or older (1 - 1-dose 75+ series) 2046 Zoster Vaccines Completed 11/01/2021, 08/17/2021 Hepatitis B Vaccines Completed 04/04/2022, 09/27/2017, 08/22/2017 Pneumococcal Vaccine: 50+ Years Completed 04/11/2022 Hepatitis C Screening Completed 10/06/2024 HIB Vaccines Aged Out No longer eligi ble based on patient's age to complete this topic HPV Vaccines Aged Out No longer eligi ble based on patient's age to complete this topic IPV Vaccines Aged Out No longer eligi ble based on patient's age to complete this topic Meningococcal B Vaccine Aged Out No l onger eligible based on patient's age to complete [...] 6.8( 9:54 AM EDT) No Puia, Taylor, Kings Procedures Procedure Name Priority Date/Time Associated Diagnosis Comments LAB COLOGUARD COLON CANCER SCREEN Routine 03/01/2025 9:05 AM EDT Screening for colon cancer POCT GLYCATED HEMOGLOBIN, TOTAL Routine 02/11/2025 9:54 AM EDT Type 2 diabetes mellitus without complication, without long-term current use of insulin (CMS/HCC) POCT GLUCOSE Routine 02/11/2025 9:53 AM EDT Type 2 diabetes mellitus without complication, without long-term current use of insulin (CMS/HCC) BI MAMMOGRAM SCREENING TOMOSYNTHESIS BILATERAL Routine 01/14/2025 2:45 PM EDT HEPATITIS C AB W/REFL TO HCV RNA, QN, PCR Routine 10/06/2024 8:15 AM EDT Need for hepatitis C screening test ALBUMIN, RANDOM URINE W/CREATININE Routine 10/06/2024 8:15 AM EDT Type 2 diabetes mellitus without complication, without long-term current use of insulin (CMS/HCC) Essential hypertension LIPID PANEL, STANDARD Routine 10/06/2024 8:15 AM EDT Type 2 diabetes mellitus without complication, without long-term current use of insulin (CMS/HCC) Essential hypertension THINPREP IMAGING PAP AND HPV MRNA E6/E7 Routine 03/31/2024 9:44 AM EDT from Last 3 Months or Most Recently Relevant to Health Maintenance Results * Cologuard?? colon cancer screening (03/01/2025 9:05 AM EDT) Cologuard Result Negative Negative 03/06/20 5:27 AM EDT [facility] (CLIA #:[id number]) Comment: The Cologuard (TM) test was performed on this specimen. NEGATIVE TEST RESULT. A negative Cologuard result indicates a low likelihood that a colorectal cancer (CRC) or advanced adenoma (adenomatous polyps with more advanced pre-malignant features) is present. The chance that a person with a negative Cologuard test has a colorectal cancer is less than 1 in 1500 (negative predictive value >99.9%) or has an advanced adenoma is less than 5.3% (negative predictive value 94.7%). These data are based on a prospective cross-sectional study of 10,000 individuals at average risk for colorectal cancer who were screened with both Cologuard and colonoscopy. (Carla Wiley al, N Engl J Med 2014;370(14):1286- 1297) The normal value (reference range) for this assay is negative. COLOGUARD RE-SCREENING RECOMMENDATION: Periodic colorectal cancer screening is an important part of preventive healthcare for asymptomatic individuals at average risk for colorectal cancer. Following a negative Cologuard result, the Stateless Cancer Society and U.S. Multi-Society Task Force screening guidelines recommend a Cologuard re-screening interval of 3 years. References: Stateless Cancer Society Guideline for Colorectal Cancer Screening: https://www.cancer.org/cancer/kbyky-wdskeb-mtjjqg/haxitclny-oeehqwexj-mqbpknn/ac s-rec ommendations.html.; Anshu DK, Livia CR, Linda BunnK, Colorectal Cancer Screening: Recommendations for Physicians and Patients from the U.S. Multi-Society Task Force on Colorectal Cancer Screening , Am J Gastroenterology 2017; 112:9364-1147. TEST DESCRIPTION: Composite algorithmic analysis of stool DNA-biomarkers with hemoglobin immunoassay. Quantitative values of individual biomarkers are not reportable and are not associated with individual biomarker result reference ranges. Cologuard is intended for colorectal cancer screening of adults of either sex, 45 years or older, who are at average-risk for colorectal cancer (CRC). Cologuard has been approved for use by the U.S. FDA. The performance of Cologuard was established in a cross sectional study of average-risk adults aged 50-84. Cologuard performance in patients ages 45 to 49 years was estimated by sub-group analysis of near-age groups. Colonoscopies performed for a positive result may find as the most clinically significant lesion: colorectal cancer [4.0%], advanced adenoma (including sessile serrated polyps greater than or equal to 1cm diameter) [20%] or non- advanced adenoma [31%]; or no colorectal neoplasia [45%]. These estimates are derived from a prospective cross-sectional screening study of 10,000 individuals at average risk for colorectal cancer who were screened with both Cologuard and colonoscopy. (Carla Wiley al, N Engl J Med 2014;370(14):3569-9863.) Cologuard may produce a false negative or false positive result (no colorectal cancer or precancerous polyp present at colonoscopy follow up). A negative Cologuard test result does not guarantee the absence of CRC or advanced adenoma (pre-cancer). The current Cologuard screening interval is every 3 years. (Stateless Cancer Society and U.S. Multi-Society Task Force). Cologuard performance data in a 10,000 patient pivotal study using colonoscopy as the reference method can be accessed at the following location: www.Osurv/results. Additional description of the Cologuard test process, warnings and precautions can be found at www.cologWalkHubrd.fastDove. Stool specimen (specimen) 03/01/2025 9:05 AM EDT 03/02/2025 10:57 AM EDT us Rivera Nicole MD LAB MOLECULAR DIAGNOSTICS ORDERA BLES Final Result [facility] (CLIA #:[id number]) [address] [place] [address], * (ABNORMAL) POCT Hgb A1c (02/11/2025 9:54 AM EDT) Hemoglobin A1C 6.8(A) 4.0 - 5.7 % QC Media Lot # [id number] Lot# Expiration Date [id number] Blood 02/11/2025 9:54 AM EDT us Rivera Nicole MD POINT OF CARE TEST ENTER/EDIT OR DERABLES Final Result * POCT Glucose (02/11/2025 9:53 AM EDT) Glucose Blood, POC 199 60 - 200 mg/dL Comment:RANDOM QC Media Lot # [id number] Lot# Expiration Date [id number] Blood Capillary blood specimen / Unknown 02/11/2025 9:53 AM EDT Rivera Nicole MD POINT OF CARE TEST ENTER/EDIT OR DERABLES Final Result * BI Mammogram Screening Tomosynthesis Bilateral (01/14/2025 2:45 PM EDT) Anatomical Region Laterality Modality Breast Bilateral Mammography 01/14/2025 2:45 PM EDT Narrative 01/25/2025 8:38 AM EDT [place] [address] [place] [address] Mammography Report Signed Patient: Kayla Mead MR#: [id number] : 1970 Acct:[id number] Age/Sex: 54 / F ADM Date: 01/14/25 Loc: HO.MAMMO Attending Dr: Rivera Nicole MD Ordering Physician: Rivera Nicole MD Results: 1Negative Date of Service: 01/14/25 Follow Up: 1 Year From Orig inal Mammogram Procedure(s): MM tomosynthesis screening BI Accession Number(s): [id number] cc: Rivera Nicole MD EXAMINATION: MM SCREENING DIGITAL BREAST TOMOSYNTHESIS, BILATERAL CLINICAL INFORMATION: Screening. Asymptomatic. COMPARISON: Comparison made to multiple prior, most recent January 02, 2024, and most remote November 25, 2018. TECHNIQUE: Digital breast tomosynthesis is performed in both the craniocaudal and mediolateral oblique views along with computer-aided detection (CAD). FINDINGS: BREAST COMPOSITION: There are scattered areas of fibroglandular density (ACR BI-RADS breast composition Category b). BILATERAL BREASTS: No significant masses, suspicious calcifications or other abnormalities are seen in either breast. MM/MM tomosynthesis screening BI IMPRESSION: BILATERAL BREASTS: Negative, no mammographic evidence of malignancy. Normal interval follow-up is recommended in 12 months. ASSESSMENT: BI-RADS 1 - Negative RECOMMENDATION: Routine annual mammography screening. FOLLOW-UP: 1 year F/U This examination should not preclude the clinical evaluation of a suspicious palpable abnormality. This patient's information was entered into a reminder system with a target due date for their next mammogram. Electronically signed by: Gene Thakur MD 01/25/2025 08:35 AM EDT RP Dictated By: Gene Thakur MD Signed By: <Electronically signed by Gene Thkaur MD in OV> 01/25/25 0835 DD/ 1445 TD/TT: 01/14/25 1500 Collection Analyst: Procedure Note Donotuseinterpreter, Image - [facility]/25/2025 [facility] [address] [place] [address] Mammography Report Signed Patient: Kayla Mead MMR#: [id number] : 1970Acct:[id number] Age/Sex: 54 / FADM Date: 01/14/25 Loc: HO.MAMMO Attending Dr: Rivera Nicole MD Ordering Physician: Rivera Nicole MDResults: 1Negative Date of Service: 01/14/25Follow Up: 1 Year From Orig ina Mammogram Procedure(s): MM tomosynthesis screening BI Accession Number(s): [id number] cc: Rivera Nicole MD EXAMINATION: MM SCREENING DIGITAL BREAST TOMOSYNTHESIS, BILATERAL CLINICAL INFORMATION: Screening. Asymptomatic. COMPARISON: Comparison made to multiple prior, most recent January 02, 2024, and most remote November 25, 2018. TECHNIQUE: Digital breast tomosynthesis is performed in both the craniocaudal and mediolateral oblique views along with computer-aided detection (CAD). FINDINGS: BREAST COMPOSITION: There are scattered areas of fibroglandular density (ACR BI-RADS breast composition Category b). BILATERAL BREASTS: No significant masses, suspicious calcifications or other abnormalities are seen in either breast. MM/MM tomosynthesis screening BI IMPRESSION: BILATERAL BREASTS: Negative, no mammographic evidence of malignancy. Normal interval follow-up is recommended in 12 months. ASSESSMENT: BI-RADS 1 - Negative RECOMMENDATION: Routine annual mammography screening. FOLLOW-UP: 1 year F/U This examination should not preclude the clinical evaluation of a suspicious palpable abnormality. This patient's information was entered into a reminder system with a target due date for their next mammogram. Electronically signed by: Gene Thakur MD 01/25/2025 08:35 AM EDT RP Dictated By: Gene Thakur MD Signed By: <Electronically signed by Gene Thakur MD in OV> 01/25/25 0835 DD/ 1445 TD/TT: 01/14/25 1500 Collection Analyst: us Rivera Nicole MD IMG BI PROCEDURES Final Result * Albumin, Random Urine W/Creatinine (10/06/2024 8:15 AM EDT) Creatinine, Urine 69.36 mg/dL [facility] Microalbumin Urine 11.0 mg/L [facility] Microalbum Creatinine Ratio Ur 15.8 <30 ug/mg cr [facility] Comment:Albumin/Creatinine R atio Reference Ranges: Normal: < 30 ug/mg creatinine Microalbuminuria: 30 - 300 ug/mg creatinineClinical Albuminuria: > 300 ug/mg creatinine Urine (Urine, Random) 10/06/2024 8:15 AM EDT 10/06/2024 11:29 AM EDT us Rivera Nicole MD LAB URINE ORDERABLES Final Resul t [facility] [address] [place] [phone] * Hepatitis C Antibody with Reflex to HCV, RNA, Quantitative, Real-Time PCR (10/06/2024 8:15 AM EDT) Hepatitis C Antibody Nonreactive Nonreactive [facility] Comment:Antibodies to HCV no t detected; does not exclude early acuteHCV infection. Blood Venous blood specimen / Unknown 10/06/2024 8:15 AM EDT 10/06/2024 11:22 AM EDT us Rivera Nicole MD LAB BLOOD ORDERABLES Final Resul t Performing Organization Address [facility] Co de Phone Number [facility] [address] [place] [address] [phone] * Lipid Panel, Standard (10/06/2024 8:15 AM EDT) Triglycerides 93 <150 mg/dL [facility] Comment:Desirable Triglyceri de: less than 150 mg/dLBorderline High Triglyceride 150-199 mg/dLHigh Triglyceride: 200-499 mg/dLVery High Triglyceride: greater than or equal to 5OO mg/dL Cholesterol 136 <200 mg/dL [facility] Comment:Desirable Cholestero l: less than 200 mg/dLBorderline High Cholesterol: 200-239 mg/dLHigh Cholesterol: greater than 239 mg/dL LDL Cholesterol Calculated 69 <100 mg/dL [facility] Comment:Desirable LDL: less than 100 mg/dLNear Optimal/Above Optimal LDL: 110- 129 mg/dLBorderline High LDL: 130-159 mg/dLHigh LDL: 160-189 mg/dLVery High LDL: greater than or equal to 190 mg/dL HDL Cholesterol 49 >40 mg/dL [facility] Comment:Desirable HDL: great er than 40 mg/dL Note: This HDL assay may give artificially low results in patients with liver disease. Blood Venous blood specimen / Unknown 10/06/2024 8:15 AM EDT 10/06/2024 11:22 AM EDT us Rivera Nicole MD LAB BLOOD ORDERABLES Final Resul t Performing Organization Address [facility]/ZIP Co de Phone Number [facility] [address] [place] [address] [phone] * ThinPrep Imaging Pap and HPV mRNA E6/E7 (03/31/2024 9:44 AM EDT) HPV nRNA E6/E7 Not Detected Not Detected [facility] Comment:Methodology: Transcr iption-Mediated AmplificationThis assay detects E6/E7 viral messenger RNA (mRNA) from 14high-risk HPV types (16,18,31,33,35,39,45,51,52,56,58,59,66,68).Cervical sources are required for HPV testing.If a vaginal source from a patient who has had atotal hysterectomy with removal of cervix wassubmitted, please contact the testing laboratoryfor alternative testing options.For additional information, please refer [email or web address](This link if provided for information/educational purposes only.)THIS TEST WAS PERFORMED AT:[facility] [address] [address]PCKCJLUIS ADAIR MD SOURCE: SEE NOTE [facility] Comment:Cervix Report Status: [facility] Clinical Information: SEE NOTE [facility] Comment:None given LMP: SEE NOTE [facility] Comment:NONE GIVEN Prev. PAP: SEE NOTE [facility] Comment:NONE GIVEN Prev. BX: SEE NOTE [facility] Comment:NONE GIVEN Statement Of Adequacy: SEE NOTE [facility] Comment:S[employer]IS[employer]ORY FOR [employer] General Categorization: [facility] Interpretation/Result: SEE NOTE [facility] Comment:Cytology Results: Ne gative for intraepitheliallesion or malignancy.Atrophic pattern; predominantly parabasal cells Cytology Comment SEE NOTE [facility] Comment:This Pap test has be en evaluated with computerassisted technology. Senior Tax Manager: SEE NOTE [facility] Comment:GSG, CT(ASCP)CT scre ening location: [address] [address] Review Senior Tax Manager: [facility] Pathologist [facility] PAP Infection [facility] See Note SEE [facility] Comment:EXPLANATORY NOTE:The Pap is a screening test for cervical cancer. It isnot a diagnostic test and is subject to false negativeand false positive results. It is most reliable when asatisfactory sample, regularly obtained, is submittedwith relevant clinical findings and history, and whenthe Pap result is evaluated along with historic andcurrent clinical information. 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
[2025-04-02 05:30] LABS: Bacterial Vaginosis PCR POSITIVE (Negative); Candida Group PCR DETECTED (Not Detect); Candida glab krusei PCR DETECTED (Not Detect); Trichomonas vaginalis PCR NOT DETECTED (Not Detect)
== END 2025-04-01 18:27 | disposition home or self-care (01) ==
LOC: HO.HHCLNP 18:26
PROVIDERS: Visit Provider Advanced Practice Midwife
DX: N90.89 Other specified noninflammatory disorders of vulva and perineum (principal); Z20.2 Contact with and (suspected) exposure to infections with a predominantly sexual mode of transmission
CPT/HCPCS: 81515